=== PATIENT | female | born 1985 | race Caucasian/White ===

== ENCOUNTER 2020-08-12 21:03 | Inpatient (IN) | payer MEDICARE, MEDICAID ==
[~2020-08-12] VITALS: Ht 165.1 cm; Wt 49.9 kg
[2020-08-12 21:15] VITALS: BP 192/109
--- NOTE | 2020-08-12 21:42 | NUR ---
ED Nurse Note: Pt ambulated to ED from home, pt is a dialysis pt and was called by them due to elevated K+ 7.4. Pt reports mild intermittent shaRP NON-RADIATING CP. PT is A&Ox4, VSS. Pt is placed on a desk monitor, EKG at bedside
--- NOTE | 2020-08-12 21:59 | Emergency Room Report ---
History of Present Illness General Chief Complaint: Abnormal Labs Source: Patient Present Illness HPI Patient walked into the emergency department. She says that her dialysis center called her to report that her potassium was 7. She missed her dialysis on Sunday. She lives by [address] which is near [place] and has been in this area recently. She says she has been having some palpitations and feeling that her hearts been racing on occasion. She has been unable to keep any food or fluids down because she is been vomiting. She denies any coffee grounds or blood. She denies melena and has been moving her bowels without difficulty. She rarely makes urine and denies dysuria. She denies fevers or chills. She denies dyspnea on exertion. Dialysis fistula is in her left upper arm. Patient also complains of some epigastric pain that is 8/10. It is fairly constant. She is also been having intermittent chest pain left lateral chest that is 4 out of 10 at this time. She does not know what brings that pain on. Patient denies exposure to COVID positive contacts. No fevers, chills, sore throat, palpitations, diarrhea, dysuria, joint pain, rashes, depression, anxiety, visual changes, dizziness, headache. 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 COVID-19 Screening: Negative COVID-19 COVID-19 Testing Source: [facility] Patient History Past Medical History: see triage record Past Surgical History: other - Dialysis fistula Social History: Reports: smoking Social History Narrative From [place] Last Menstrual Period: 06/2020 Now: No Reviewed Nursing Documentation: PMH: Agreed; PSxH: Agreed Nursing Documentation-PMH Hx Hypertension: Yes Hx Dialysis: Yes - MWF Review of Systems All Other Systems: negative except mentioned in HPI Physical Exam Vital Signs Date Time Temp Pulse Resp B/P (MAP) Pulse Ox O2 Delivery O2 Flow Rate FiO2 08/12/20 21:15 98.8 85 20 192/109 (136) 98 Room Air Sp02 EP Interpretation: reviewed, normal General Appearance: well appearing, no apparent distress, GCS 15, non-toxic Head: normocephalic Eyes: bilateral eye normal inspection, bilateral eye PERRL, bilateral eye EOMI ENT: moist mucus membranes Neck: supple Respiratory: lungs clear, normal breath sounds Cardiovascular #1: regular rate, rhythm, no edema Cardiovascular #2: 2+ radial (R), 2+ radial (L) - fistula upper arm with thrill Gastrointestinal: normal inspection, normal bowel sounds, no mass, non- distended, no guarding, no rebound, tenderness - reported diffusely Genitourinary: no CVA tenderness Musculoskeletal: back normal, normal range of motion, no calf tenderness, gait/station normal Neurologic: alert, oriented x3, grossly normal Psychiatric: mood/affect normal Skin: no rash, warm/dry Medical Decision Making Diagnostic Impression: Primary Impression: Chest pain Qualified Codes: R07.9 - Chest pain, unspecified Additional Impressions: Abdominal pain Qualified Codes: R10.84 - Generalized abdominal pain ESRD on hemodialysis Nausea & vomiting Qualified Codes: R11.2 - Nausea with vomiting, unspecified ER Course Patient presents with alleged high potassium after missing dialysis on Sunday with complaints of epigastric and chest pain. Differential includes acute myocardial infarction, abnormal labs with high potassium, gastritis, arrhythmia, angina amongst others. Her blood pressure is high also. Evaluation with EKG and labs. 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 Blood pressure will be addressed. EKG with normal sinus rhythm rate of 80 with slight peaked T waves and left atrial enlargement however EKG machine reads this is normal. CXR sl cardiomegally, no CHF. WBC elevated. ESRD with minimally elevated potassium. Initial troponin negative. BNP elevated. Labetalol and clonidine patch ordered. Patient still complaining of pain. Morphine administered. Nausea somewhat improved. Blood pressure improved. Pain improved. Discussed results with patient. Admitted telemetry for further observation and evaluation. Laboratory Tests Test 08/12/20 21:55 08/13/20 05:20 08/13/20 06:26 White Blood Count 13.2 K/UL (4.8-10.8) H 8.8 K/UL (4.8-10.8) Red Blood Count 3.87 M/UL (4.20-5.40) L 3.38 M/UL (4.20-5.40) L Hemoglobin 13.1 G/DL (12.0-16.0) 11.6 G/DL (12.0-16.0) L Hematocrit 40.4 % (37.0-47.0) 36.4 % (37.0-47.0) L Mean Corpuscular Volume 104 FL (80-99) H 108 FL (80-99) H Mean Corpuscular Hemoglobin 33.9 PG (27.0-31.0) H 34.2 PG (27.0-31.0) H Mean Corpuscular Hemoglobin Concent 32.5 G/DL (32.0-36.0) 31.7 G/DL (32.0-36.0) L Red Cell Distribution Width 12.6 % (11.6-14.8) 12.6 % (11.6-14.8) Platelet Count 266 K/UL (150-450) 230 K/UL (150-450) Mean Platelet Volume 7.1 FL (6.5-10.1) 6.0 FL (6.5-10.1) L Neutrophils (%) (Auto) 77.4 % (45.0-75.0) H 67.8 % (45.0-75.0) Lymphocytes (%) (Auto) 14.2 % (20.0-45.0) L 21.2 % (20.0-45.0) Monocytes (%) (Auto) 5.2 % (1.0-10.0) 7.9 % (1.0-10.0) Eosinophils (%) (Auto) 2.0 % (0.0-3.0) 2.2 % (0.0-3.0) Basophils (%) (Auto) 1.2 % (0.0-2.0) 0.9 % (0.0-2.0) Prothrombin Time 11.7 SEC (9.30-11.50) H Prothrombin Time INR 1.1 (0.9-1.1) Activated Partial Thromboplast Time 29 SEC (23-33) Sodium Level 135 MMOL/L (136-145) L 136 MMOL/L (136-145) Potassium Level 5.3 MMOL/L (3.5-5.1) H 5.8 MMOL/L (3.5-5.1) H Chloride Level 100 MMOL/L (98-107) 100 MMOL/L (98-107) Carbon Dioxide Level 20 MMOL/L (21-32) L 21 MMOL/L (21-32) Anion Gap 15 mmol/L (5-15) 15 mmol/L (5-15) Blood Urea Nitrogen 74 mg/dL (7-18) H 76 mg/dL (7-18) H Creatinine 15.2 MG/DL (0.55-1.30) H 16.0 MG/DL (0.55-1.30) H Estimated Glomerular Filtration Rate 2.7 mL/min (>60) 2.5 mL/min (>60) Glucose Level 109 MG/DL (74-106) H 81 MG/DL (74-106) Calcium Level 8.3 MG/DL (8.5-10.1) L 7.7 MG/DL (8.5-10.1) L Magnesium Level 2.7 MG/DL (1.8-2.4) H Total Bilirubin 0.4 MG/DL (0.2-1.0) 0.4 MG/DL (0.2-1.0) Aspartate Amino Transferase (AST) 12 U/L (15-37) L 141 U/L (15-37) H Alanine Aminotransferase (ALT) 8 U/L (12-78) L 88 U/L (12-78) H Alkaline Phosphatase 118 U/L (46-116) H 127 U/L (46-116) H Total Creatine Kinase 62 U/L (26-308) Troponin I 0.023 ng/mL (0.000-0.056) Pro-B-Type Natriuretic Peptide > 47912 pg/mL (0-125) H Total Protein 7.6 G/DL (6.4-8.2) 6.7 G/DL (6.4-8.2) Albumin 3.8 G/DL (3.4-5.0) 3.4 G/DL (3.4-5.0) Globulin 3.8 g/dL 3.3 g/dL Albumin/Globulin Ratio 1.0 (1.0-2.7) 1.0 (1.0-2.7) Hemoglobin A1c 6.0 % (4.3-6.0) Phosphorus Level 7.7 MG/DL (2.5-4.9) H Triglycerides Level 114 MG/DL (30-150) Cholesterol Level 165 MG/DL (< 200) LDL Cholesterol 100 mg/dL (<100) HDL Cholesterol 39 MG/DL (40-60) L Cholesterol/HDL Ratio 4.2 (3.3-4.4) Thyroid Stimulating Hormone (TSH) 5.928 uiU/mL (0.358-3.740) POC Whole Blood Glucose 78 MG/DL (74-106) EKG Diagnostic Results Troponin ordered: Yes Rate: normal Rhythm: NSR ST Segments: no acute changes - slight peaked T waves ASA given to the pt in ED: Yes Rhythm Strip Diag. Results EP Interpretation: yes Rhythm: NSR, no PVC's, no ectopy Chest X-Ray Diagnostic Results Chest X-Ray Diagnostic Results : Chest X-Ray Ordered: Yes # of Views/Limited/Complete: 1 View Indication: Chest Pain EP Interpretation: Yes Interpretation: no consolidation, no effusion, no pneumothorax, other - slight cardiomegally Impression: Other Electronically Signed by: Electronically signed by Giorgio Fleming MD Last Vital Signs Date Time Temp Pulse Resp B/P (MAP) Pulse Ox O2 Delivery O2 Flow Rate FiO2 08/12/20 21:15 98.8 85 20 192/109 (136) 98 Room Air Status: improved Disposition: ADMITTED INPATIENT Condition: Serious Giorgio Fleming MD Aug 12, 2020 21:59
[2020-08-12] MEDS ORDERED: Morphine Sulfate 4mg/ml Inj (IV USE ONLY) IVP ONE ×2 (22:00→23:45)
[2020-08-12] MEDS ORDERED: Labetalol 5mg/ml 20ml vial IV ONE (22:00)
[2020-08-12 22:27] LABS: BASOPHILS % (AUTO) 1.2 % (0.0-2.0); HEMATOCRIT 40.4 % (37.0-47.0); HEMOGLOBIN 13.1 G/DL (12.0-16.0); LYMPHOCYTES % (AUTO) 14.2 % (20.0-45.0); MEAN CORPUSCULAR VOLUME 104 FL (80-99); MONOCYTES % (AUTO) 5.2 % (1.0-10.0); NEUTROPHILS % (AUTO) 77.4 % (45.0-75.0); PLATELET COUNT 266 K/UL (150-450); RED BLOOD COUNT 3.87 M/UL (4.20-5.40); RED CELL DISTRIBUTION WIDTH 12.6 % (11.6-14.8); WHITE BLOOD COUNT 13.2 K/UL (4.8-10.8)
[2020-08-12 22:30] LABS: ANION GAP 15 mmol/L (5-15); BLOOD UREA NITROGEN 74 mg/dL (7-18); CALCIUM 8.3 MG/DL (8.5-10.1); CARBON DIOXIDE 20 MMOL/L (21-32); CHLORIDE 100 MMOL/L (98-107); CREATININE 15.2 MG/DL (0.55-1.30); POTASSIUM 5.3 MMOL/L (3.5-5.1); SODIUM 135 MMOL/L (136-145)
[2020-08-12 22:34] LABS: INR 1.1 (0.9-1.1)
[2020-08-12 22:42] LABS: ALANINE AMINOTRANSFERASE 8 U/L (12-78); ALBUMIN 3.8 G/DL (3.4-5.0); ALKALINE PHOSPHATASE 118 U/L (46-116); ASPARTATE AMINO TRANSFERASE 12 U/L (15-37); BILIRUBIN,TOTAL 0.4 MG/DL (0.2-1.0); CREATINE KINASE 62 U/L (26-308)
[2020-08-12 23:15] VITALS: BP 181/90
--- NOTE | 2020-08-12 23:40 | NUR ---
ED Nurse Note: Pt resting in bed with eyes open, reports abdominal pain increasing, ERMD notified, VSS, will continue to monitor
[2020-08-12] MEDS ORDERED: clonidine patch TOPIC (23:42)
[2020-08-12] MEDS ORDERED: Mylanta II UD 30ml ORAL ONE (23:45)
[2020-08-12] MEDS ORDERED: ADALAT20 MG ORAL (23:52)
[2020-08-12] MEDS ORDERED: CALCIUM ACETATE1 GM MC (23:52)
[2020-08-13] MEDS ORDERED: Aspirin Baby 81mg ORAL ONE
[2020-08-13] MEDS ORDERED: Albuterol/Ipratropium 3ml neb HHN PRN
[2020-08-13] MEDS ORDERED: Zolpidem 5mg tab ORAL PRN
[2020-08-13] MEDS ORDERED: Miralax 17gm pkt ORAL PRN
--- NOTE | 2020-08-13 00:05 | NUR ---
ED Nurse Note: Ptc refused VRE swab
--- NOTE | 2020-08-13 00:25 | NUR ---
TRANSFER TO FLOOR: Patient transferred to as ordered, per Dr Alfaro. Report given to CONSTANTIN Ortiz . Belongings and medications given to . Family and or S/O informed of transfer.
--- NOTE | 2020-08-13 00:30 | NUR ---
NURSE NOTES: Received report from [facility].The patient is alert and oriented x4 and does not appear to be in any acute distress at this time.She is on room air with Resp even and unlabored and the bilateral lung sounds clear on auscultation.She is able to ambulate to the bathroom with a steady gait.The body is warm and soft with capillary refil<3 secs, body is intact. She was fitted with a ultrasound spec 5 lead.The patient is on hemodialysis MWF and missed dialysis on Sunday. Will followup with DR. alcantara for admission order as indicated.The bed in dagmar and locked level. call light within easy reach and side rails up x2.Will continue to monitor as indicated.
[2020-08-13 00:40] VITALS: BP 144/86
--- NOTE | 2020-08-13 00:50 | NUR ---
NURSE NOTES: Received admission order from Dr. Edmondson.All orders executed as indicated.The patient is alert and stable and does not appear to be in any distress at this time.Will continue to monitor
[2020-08-13 04:00] VITALS: BP 156/85
[2020-08-13] MEDS: NovoLOG Insulin Flexpen SUBQ SCH ×2 (06:30→11:30)
--- NOTE | 2020-08-13 06:50 | NUR ---
NURSE NOTES: A message was left to Dr rosa informing him about the patient ESRD and that the patient is on Hemodialysis MWF,she missed her dialysis on Sunday and will properly need a dialysis today as indicated. Will endorsed to the next shift for followup as indicated.
--- NOTE | 2020-08-13 07:12 | NUR ---
NURSE HAND-OFF REPORT: Important Events on Shift: Patient Status: Diet: Pending Orders: Pending Results/Labs: Pending MD notification: Latest Vital Signs: Temperature 97.9 , Pulse 78 , B/P 156 /85 , Respiratory Rate 18 , O2 SAT 97 , Room Air, O2 Flow Rate . Vital Sign Comment: EKG Rhythm: Sinus Rhythm Rhythm change?: N MD Notified?: - MD Response: Latest Villar Fall Score: 35 Fall Risk: Medium Risk Safety Measures: Call light Within Reach, Bed Alarm Zone 1, Side Rails Side Rails x1, Bed position Low and Locked. Fall Precautions: Yellow Socks Yellow Gown Door Sign Patient Fall Education Report given to .
[2020-08-13 07:16] LABS: BASOPHILS % (AUTO) 0.9 % (0.0-2.0); EOSINOPHILS % (AUTO) 2.2 % (0.0-3.0); HEMATOCRIT 36.4 % (37.0-47.0); HEMOGLOBIN 11.6 G/DL (12.0-16.0); LYMPHOCYTES % (AUTO) 21.2 % (20.0-45.0); MEAN CORPUSCULAR VOLUME 108 FL (80-99); MONOCYTES % (AUTO) 7.9 % (1.0-10.0); NEUTROPHILS % (AUTO) 67.8 % (45.0-75.0); PLATELET COUNT 230 K/UL (150-450); RED BLOOD COUNT 3.38 M/UL (4.20-5.40); RED CELL DISTRIBUTION WIDTH 12.6 % (11.6-14.8); WHITE BLOOD COUNT 8.8 K/UL (4.8-10.8)
--- NOTE | 2020-08-13 07:45 | NUR ---
NURSE NOTES: Left a message for Dr. Alfaro regarding heart rate 150's, BP 188/105. Awaiting response.
[2020-08-13 07:50] VITALS: BP 192/97
[2020-08-13 07:58] LABS: ALANINE AMINOTRANSFERASE 88 U/L (12-78); ALBUMIN 3.4 G/DL (3.4-5.0); ALKALINE PHOSPHATASE 127 U/L (46-116); ANION GAP 15 mmol/L (5-15); ASPARTATE AMINO TRANSFERASE 141 U/L (15-37); BILIRUBIN,TOTAL 0.4 MG/DL (0.2-1.0); BLOOD UREA NITROGEN 76 mg/dL (7-18); CALCIUM 7.7 MG/DL (8.5-10.1); CARBON DIOXIDE 21 MMOL/L (21-32); CHLORIDE 100 MMOL/L (98-107); CHOLESTEROL 165 MG/DL (< 200); HDL CHOLESTEROL 39 MG/DL (40-60); POTASSIUM 5.8 MMOL/L (3.5-5.1); SODIUM 136 MMOL/L (136-145); TRIGLYCERIDES 114 MG/DL (30-150)
[2020-08-13 08:00] VITALS: BP 187/90
--- NOTE | 2020-08-13 08:14 | NUR ---
NURSE NOTES: Per bessie Chacon to give the ordered lopressor 25mg PO BID. Dr. Alfaro aware of the clonidine given earlier.
[2020-08-13] MEDS ORDERED: Metoprolol Tartrate 5mg/5ml Inj IVP PRN (08:30)
[2020-08-13] MEDS ORDERED: Heparin 5000 units/ml inj SUBQ SCH (09:00)
[2020-08-13 12:00] VITALS: BP 199/104
--- NOTE | 2020-08-13 12:16 | Consultation ---
History of Present Illness General Date patient seen: Aug 13, 2020 Chief Complaint: Abnormal Labs Present Illness HPI 34 year old female with hx of ESRD on HD, HTN presented to ER because her dialysis center called her to report that her potassium was 7. She missed her dialysis on Sunday. She says she has been having some palpitations and feeling that her hearts been racing on occasion. She has been unable to keep any food or fluids down because she is been vomiting. Patient also complains of some epigastric pain that is 8/10. It is fairly constant. She is also been having intermittent chest pain left lateral chest that is 4 out of 10 at this time. She does not know what brings that pain on. Allergies: Coded Allergies: No Known Allergies (Unverified , 08/12/20) Medication History Scheduled Nifedipine (Nifedipine*), 90 MG ORAL BID, (Reported) [clonidine patch], 3 MG TOPIC DAILY, (Reported) Miscellaneous Medications Calcium Acetate (Calcium Acetate), 1 GM MC, (Reported) Patient History Healthcare decision maker Resuscitation status Advanced Directive on File Past Medical/Surgical History Past Medical/Surgical History: (1) ESRD on hemodialysis (2) History of hypertension Review of Systems All Other Systems: negative except mentioned in HPI Physical Exam General Appearance: cachetic, thin Lines, tubes and drains: peripheral HEENT: normocephalic, atraumatic Neck: non-tender, normal alignment Respiratory/Chest: chest wall non-tender, lungs clear Breasts: no masses Cardiovascular/Chest: normal peripheral pulses Abdomen: normal bowel sounds, non tender Extremities: normal range of motion, non-tender, normal inspection Skin Exam: normal pigmentation 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 normal Last 24 Hour Vital Signs Date Time Temp Pulse Resp B/P (MAP) Pulse Ox O2 Delivery O2 Flow Rate FiO2 08/13/20 08:04 192/97 08/13/20 08:00 80 08/13/20 08:00 97.2 80 16 187/90 (122) 100 08/13/20 07:50 192/97 (128) 08/13/20 04:00 97.9 78 18 156/85 (108) 97 08/13/20 00:40 97.6 79 19 144/86 (105) 97 08/13/20 00:37 65 08/13/20 00:20 98.0 78 18 167/88 99 Room Air 08/13/20 00:14 98.7 08/12/20 23:15 98.0 81 20 181/90 99 Room Air 08/12/20 22:45 98.7 08/12/20 22:13 181/101 08/12/20 22:13 85 181/105 08/12/20 21:15 98.8 85 20 192/109 (136) 98 Room Air 08/12/20 21:15 98.8 86 20 192/109 98 Room Air Laboratory Tests Test 08/12/20 21:55 08/13/20 00:15 08/13/20 05:20 08/13/20 06:26 White Blood Count 13.2 K/UL (4.8-10.8) H 8.8 K/UL (4.8-10.8) Red Blood Count 3.87 M/UL (4.20-5.40) L 3.38 M/UL (4.20-5.40) L Hemoglobin 13.1 G/DL (12.0-16.0) 11.6 G/DL (12.0-16.0) L Hematocrit 40.4 % (37.0-47.0) 36.4 % (37.0-47.0) L Mean Corpuscular Volume 104 FL (80-99) H 108 FL (80-99) H Mean Corpuscular Hemoglobin 33.9 PG (27.0-31.0) H 34.2 PG (27.0-31.0) H Mean Corpuscular Hemoglobin Concent 32.5 G/DL (32.0-36.0) 31.7 G/DL (32.0-36.0) L Red Cell Distribution Width 12.6 % (11.6-14.8) 12.6 % (11.6-14.8) Platelet Count 266 K/UL (150-450) 230 K/UL (150-450) Mean Platelet Volume 7.1 FL (6.5-10.1) 6.0 FL (6.5-10.1) L Neutrophils (%) (Auto) 77.4 % (45.0-75.0) H 67.8 % (45.0-75.0) Lymphocytes (%) (Auto) 14.2 % (20.0-45.0) L 21.2 % (20.0-45.0) Monocytes (%) (Auto) 5.2 % (1.0-10.0) 7.9 % (1.0-10.0) Eosinophils (%) (Auto) 2.0 % (0.0-3.0) 2.2 % (0.0-3.0) Basophils (%) (Auto) 1.2 % (0.0-2.0) 0.9 % (0.0-2.0) Prothrombin Time 11.7 SEC (9.30-11.50) H Prothromb Time International Ratio 1.1 (0.9-1.1) Activated Partial Thromboplast Time 29 SEC (23-33) Sodium Level 135 MMOL/L (136-145) L 136 MMOL/L (136-145) Potassium Level 5.3 MMOL/L (3.5-5.1) H 5.8 MMOL/L (3.5-5.1) H Chloride Level 100 MMOL/L (98-107) 100 MMOL/L (98-107) Carbon Dioxide Level 20 MMOL/L (21-32) L 21 MMOL/L (21-32) Anion Gap 15 mmol/L (5-15) 15 mmol/L (5-15) Blood Urea Nitrogen 74 mg/dL (7-18) H 76 mg/dL (7-18) H Creatinine 15.2 MG/DL (0.55-1.30) H 16.0 MG/DL (0.55-1.30) H Estimat Glomerular Filtration Rate 2.7 mL/min (>60) 2.5 mL/min (>60) Glucose Level 109 MG/DL (74-106) H 81 MG/DL (74-106) Calcium Level 8.3 MG/DL (8.5-10.1) L 7.7 MG/DL (8.5-10.1) L Magnesium Level 2.7 MG/DL (1.8-2.4) H Total Bilirubin 0.4 MG/DL (0.2-1.0) 0.4 MG/DL (0.2-1.0) Aspartate Amino Transf (AST/SGOT) 12 U/L (15-37) L 141 U/L (15-37) H Alanine Aminotransferase (ALT/SGPT) 8 U/L (12-78) L 88 U/L (12-78) H Alkaline Phosphatase 118 U/L (46-116) H 127 U/L (46-116) H Total Creatine Kinase 62 U/L (26-308) Troponin I 0.023 ng/mL (0.000-0.056) Pro-B-Type Natriuretic Peptide > 06907 pg/mL (0-125) H Total Protein 7.6 G/DL (6.4-8.2) 6.7 G/DL (6.4-8.2) Albumin 3.8 G/DL (3.4-5.0) 3.4 G/DL (3.4-5.0) Globulin 3.8 g/dL 3.3 g/dL Albumin/Globulin Ratio 1.0 (1.0-2.7) 1.0 (1.0-2.7) Hepatitis B Surface Antigen Pending Hemoglobin A1c 6.0 % (4.3-6.0) Phosphorus Level 7.7 MG/DL (2.5-4.9) H Triglycerides Level 114 MG/DL (30-150) Cholesterol Level 165 MG/DL (< 200) LDL Cholesterol 100 mg/dL (<100) HDL Cholesterol 39 MG/DL (40-60) L Cholesterol/HDL Ratio 4.2 (3.3-4.4) Thyroid Stimulating Hormone (TSH) 5.928 uiU/mL (0.358-3.740) POC Whole Blood Glucose 78 MG/DL (74-106) Height (Feet): 5 Height (Inches): 5.00 Weight (Pounds): 110 Medications Current Medications Medications (Trade) Dose Ordered Sig/Dexter Route PRN Reason Start Time Stop Time Status Last Admin Dose Admin Acetaminophen (Tylenol) 650 mg Q4H PRN ORAL fever 08/13/20 00:00 09/12/20 00:00 Albuterol/ Ipratropium (Albuterol/ Ipratropium) 3 ml Q6H PRN HHN dyspnea 08/13/20 00:00 08/18/20 00:00 Clonidine HCl (Catapres Tab) 0.1 mg Q4H PRN ORAL For High Blood Pressure 08/13/20 00:00 11/11/20 00:00 08/13/20 08:04 Dextrose (Dextrose 50%) 25 ml Q30M PRN IV Hypoglycemia 08/13/20 00:00 11/11/20 00:00 Dextrose (Dextrose 50%) 50 ml Q30M PRN IV Hypoglycemia 08/13/20 00:00 11/11/20 00:00 Heparin Sodium (Porcine) (Heparin 5000 units/ml) 5,000 units EVERY 12 HOURS SUBQ 08/13/20 09:00 09/27/20 08:59 Insulin Aspart (NovoLOG) BEFORE MEALS AND HS SUBQ 08/13/20 06:30 11/11/20 06:29 Metoprolol Tartrate (Lopressor) 5 mg Q6H PRN IVP Tachycardia 08/13/20 08:30 11/11/20 08:29 Metoprolol Tartrate (Lopressor) 25 mg Q12HR ORAL 08/13/20 09:00 11/11/20 08:59 Ondansetron HCl (Zofran) 4 mg Q6H PRN IVP Nausea & Vomiting 08/13/20 00:00 09/12/20 00:00 Polyethylene Glycol (Miralax) 17 gm HSPRN PRN ORAL Constipation 08/13/20 00:00 09/12/20 00:00 Zolpidem Tartrate (Ambien) 5 mg HSPRN PRN ORAL Insomnia 08/13/20 00:00 08/20/20 00:00 Assessment/Plan Problem List: (1) Hyperkalemia ICD Codes: E87.5 - Hyperkalemia SNOMED: 23943387 (2) Uncontrolled hypertension ICD Codes: I10 - Essential (primary) hypertension SNOMED: 10462241, 15319214 (3) Nausea & vomiting ICD Codes: R11.2 - Nausea with vomiting, unspecified SNOMED: 60197205 Qualifiers: Qualified Codes: R11.2 - Nausea with vomiting, unspecified (4) ESRD on hemodialysis ICD Codes: N18.6 - End stage renal disease; Z99.2 - Dependence on renal dialysis SNOMED: 38933761, 749283411 (5) History of hypertension ICD Codes: Z86.79 - Personal history of other diseases of the circulatory system SNOMED: 750890470 (6) Poor compliance ICD Codes: Z91.19 - Patient's noncompliance with other medical treatment and regimen SNOMED: 3100546 Assessment/Plan: symptomatic treatment HD lola, pt is getting dialysis right now resume home meds, including antihypertensive meds monitor BP GI evaluation dvt prophylaxis Vanessa Nix MD Aug 13, 2020 12:16
--- NOTE | 2020-08-13 13:03 | History & Physical ---
History and Physical History & Physicial Pilo Alfaro MD Aug 13, 2020 13:03
--- NOTE | 2020-08-13 13:11 | Consultation ---
Consult Note Consult Note I am asked to evaluate the patient at the request of Dr. Alfaro for dialysis management Patient seen this morning in the room while on dialysis. Emergency room note: Patient walked into the emergency department. She says that her dialysis center called her to report that her potassium was 7. She missed her dialysis on Sunday. She lives by [address] which is near [place] and has been in this area recently. She says she has been having some palpitations and feeling that her hearts been racing on occasion. She has been unable to keep any food or fluids down because she is been vomiting. She denies any coffee grounds or blood. She denies melena and has been moving her bowels without difficulty. She rarely makes urine and denies dysuria. She denies fevers or chills. She denies dyspnea on exertion. Dialysis fistula is in her left upper arm. Patient also complains of some epigastric pain that is 8/10. It is fairly constant. She is also been having intermittent chest pain left lateral chest that is 4 out of 10 at this time. She does not know what brings that pain on. Patient denies exposure to COVID positive contacts. No fevers, chills, sore throat, palpitations, diarrhea, dysuria, joint pain, rashes, depression, anxiety, visual changes, dizziness, headache. 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 COVID-19 Screening: Negative COVID-19 COVID-19 Testing Source: [facility] Past Medical History: see triage record Past Surgical History: other - Dialysis fistula Social History: Reports: smoking Social History Narrative From [place] Last Menstrual Period: 06/2020 Now: No Reviewed Nursing Documentation: PMH: Agreed; PSxH: Agreed Hx Hypertension: Yes Hx Dialysis: Yes - MWF Vital Signs Date Time Temp Pulse Resp B/P (MAP) Pulse Ox O2 Delivery O2 Flow Rate FiO2 08/12/20 21:15 98.8 85 20 192/109 (136) 98 Room Air Sp02 EP Interpretation: reviewed, normal Assessment/Plan Patient presents to emergency room, missed dialysis, has high potassium Chest pain Abdominal pain, nausea and vomiting Hypertensive kidney disease Hemodialysis already in process Continue per consultants Keep the blood pressure, blood sugar, in control Monitor renal parameters Per orders Joe Garg MD Aug 13, 2020 13:11
[2020-08-13] MEDS ORDERED: HydrALAZINE 50mg tab ORAL SCH (14:00)
[2020-08-13 14:49] VITALS: BP 199/104
--- NOTE | 2020-08-13 15:00 | NUR ---
NURSE NOTES: Patient has been requesting to leave because she just wants her dialysis completed and go home. She stated, "i do not want to be here, I want to go see my rail setter near my house." I attempted talking to her to get her stay by stating that there are risks involved leaving against medical advise, we need authorization from the doctor to fully ensure she is stable enough to leave. Despite education she requested to leave and signed the AMA form. shelter monitor removed and given to MT. ARELI Dutton on right antecubital removed, skin is intact, no s/s infection or induration. Skin is intact. Patient ID band removed and placed in appropriate receptacle. Escorted patient out of the hospital without any incident.
--- NOTE | 2020-08-13 16:20 | Cardiology Report ---
APPROVED REPORT EKG Measurement Heart [id number] <Conclusion> Normal sinus rhythm Possible Left atrial enlargement Left ventricular hypertrophy with repolarization abnormality Abnormal ECG
--- NOTE | 2020-08-13 16:42 | Diagnostic Imaging Report ---
Indication: Chest pain Technique: XRAY Chest 1v Comparison: None Findings: Heart appears enlarged. Mediastinal contours are sharp. There is no focal airspace consolidation. No pleural effusion or pneumothorax. No acute osseous abnormality. Chronic fracture of the left clavicle. Impression: No radiographic evidence of acute cardiopulmonary disease.
[2020-08-13] MEDS ORDERED: Docusate 100mg cap ORAL SCH (18:00)
--- NOTE | 2020-08-14 09:15 | History and Physical Report ---
DATE OF ADMISSION: 08/12/2020 CHIEF COMPLAINT: Abnormal laboratory. HISTORY OF PRESENT ILLNESS: This is a 34-year-old female with past medical history significant for end-stage renal disease on hemodialysis, Sunday, Sunday, and Sunday, and hypertension, who presented to emergency department due to abnormal blood work with potassium of 7. The patient missed her regular dialysis past Sunday. She stated that she has been having some palpitation, feeling that her heart is racing occasionally. She is unable to keep any food or fluids down because of vomiting. She complains of some epigastric pain, 8/10 in intensity, constant. She also is having intermittent chest discomfort at left lateral chest, 4/10 in intensity. Shortly after initial evaluation in the emergency department, the patient was noted to have a potassium of 5.3 and proBNP of greater than 35,000. Subsequently, the patient was admitted to the hospital for hyperkalemia as well as hypertensive urgency. PAST MEDICAL HISTORY/PAST SURGICAL HISTORY: As above history of end-stage renal disease on hemodialysis, Sunday, Sunday, Sunday, and hypertension. MEDICATIONS AT HOME: Please refer to medication reconciliation. ALLERGIES: No known drug allergies. SOCIAL HISTORY: The patient denies any alcohol or substance abuse at this time. FAMILY HISTORY: Noncontributory. REVIEW OF SYSTEMS: Mostly as above. Denies any dysuria, frequency, or hematuria. Complained about nausea, vomiting, palpitation, and chest discomfort. Denies any loss of consciousness. Denies any fall or head trauma. PHYSICAL EXAMINATION: VITAL SIGNS: On admission, temperature 98.8, pulse of 86, respirations 20, and blood pressure 192/109. GENERAL: The patient is awake and responsive, thin-appearing, cachectic. HEAD AND NECK: Pupils are equal and reactive to light. Extraocular movements intact. Neck was supple. No JVD. LUNGS: Good air entry with no wheezing or rales. HEART: S1, S2. Regular rhythm. No murmur or gallops. ABDOMEN: Soft, nondistended, nontender. Positive bowel sounds. EXTREMITIES: No cyanosis, clubbing, or edema. The patient has AV fistula on the left upper extremity. NEUROLOGIC: Cranial nerves 2 through 12 was intact. The patient is moving all extremities spontaneously. Motor is intact. LABORATORY DATA: On admission from the emergency department, sodium 135, potassium 5.3, chloride 100, bicarbonate 20, BUN 74, creatinine is 15.2. GFR is 2.7. Glucose is 109. Calcium is 8.3. Magnesium 2.7. Total bilirubin of 0.4, AST of 12, ALT of 8, alkaline phosphatase was 118. ProBNP greater than 35,000. PT of 11, INR 1.1, PTT of 29. WBC of 13.2, hemoglobin of 13, hematocrit 40, and platelets 266,000. The patient had a chest x-ray, no radiographic evidence of acute cardiopulmonary disease. EKG shows normal sinus rhythm, ventricular rate of 80, possible left atrial enlargement, left ventricular hypertrophy with repolarization abnormality. Abnormal EKG. ASSESSMENT: 1. Hypertensive urgency. 2. Hyperkalemia. 3. End-stage renal disease, on hemodialysis. 4. Chest pain, possible acute coronary syndrome. 5. Abdominal pain associated with nausea and vomiting. 6. Hypertensive kidney disease. PLAN: 1. Admit the patient to monitored unit. 2. We will follow up with Dr. Joe Garg for emergent dialysis order. 3. We will follow up with Dr. Nix, Pulmonary Critical Care. 4. Monitor laboratory and blood pressure closely. 5. Code status is Full Code. 6. DVT prophylaxis, heparin subcutaneous. Pilo Alfaro M.D. DR: ANN JOB#: [id number] CC:
--- NOTE | 2020-08-15 12:28 | Discharge Summary ---
Discharge Summary Discharge Summary _ DATE OF ADMISSION: 08/12/2020 DATE OF DISCHARGE: 08/13/2020 ADMITTING MD: Dr. Pilo Alfaro CONSULTANTS: Dr. Joe Nix BRIEF HOSPITAL COURSE: Patient is a 34-year-old female with past medical history significant for end- stage renal disease on hemodialysis every Sunday, Sunday and Sunday, and hypertension, who presented to the emergency department due to abnormal blood work potassium level of 7. The patient missed her regular dialysis. She complained of palpitation, feeling that her heart is racing occasionally. She is unable to keep any food or fluid down because of vomiting. She complained of epigastric pain, 8/10 in intensity, described to be constant. She also had intermittent chest discomfort at left lateral chest, 4/10 in intensity. Upon evaluation at ED, blood pressure was 192/109. EKG with normal sinus rhythm at a rate of 80, slightly peaked T waves and left atrial enlargement. Chest x- ray showed cardiomegaly, no CHF. WBC was elevated to 13. Potassium level 5.3. Initial troponin negative. She was given labetalol and clonidine patch. Patient was admitted for evaluation of hyperkalemia as well as hypertensive urgency. She was admitted to monitored unit. Home meds were resumed. Stat hemodialysis was ordered. Post hemodialysis, patient left and signed an AMA form. FINAL DIAGNOSES: Hypertensive urgency Hyperkalemia End-stage renal disease on hemodialysis Chest pain, possible acute coronary syndrome Abdominal pain associated with nausea and vomiting Hypertensive kidney disease DISPOSITION: Patient left AGAINST MEDICAL ADVICE. I have been assigned to complete a discharge summary on this account, I was not involved with the patient's management.--MARY Bowman Jacqueline Robles NP Aug 15, 2020 12:28
--- NOTE | 2020-08-15 20:44 | Cardiology Report ---
APPROVED REPORT EKG Measurement Heart [id number] <Conclusion> Normal sinus rhythm Voltage for LVH Anterior infarct, age undetermined T wave abnormality, consider lateral ischemia Abnormal ECG
--- NOTE | 2020-08-16 10:32 | Cardiology Report ---
APPROVED REPORT EXAM: Two-dimensional and M-mode echocardiogram with Doppler and color Doppler. INDICATION LV FUNCTION M-Mode DIMENSIONS IVSd1.0 (0.7-1.1cm)Left Atrium (MM)3.4 (1.6-4.0cm) LVDd4.8 (3.5-5.6cm)Aortic Root3.2 (2.0-3.7cm) PWd2.3 (0.7-1.1cm)Aortic Cusp Exc.2.0 (1.5-2.0cm) IVSs1.4 cm LVDs3.5 (2.5-4.0cm) <Conclusion> Normal left ventricular chamber size, systolic function and wall motion. Left ventricular ejection fraction estimated to be 60-65%. Mild left ventricular hypertrophy by 2-D. No evidence of pericardial effusion. Pleural effusion present. Mild left atrial enlargement. Right cardiac chamber sizes are within normal limits. Moderate mitral valve leaflets calcification with normal excursion. Moderate mitral annulus and aortic root calcification. Pulmonic valve not well visualized. Normal tricuspid valve structure. IVC at normal size with physiologic collapse. A color flow and spectral Doppler study was performed and revealed: Moderate to severe aortic insufficiency. Moderate mitral regurgitation. Peak mitral valve gradient of 13 mm Hg and a mean of 5 mmHg. Mitral inflow indicates normal left ventricular diastolic function. Mild tricuspid regurgitation. Tricuspid systolic velocities suggests peak right ventricular systolic pressure of 67mmHg, consistent with severe pulmonary hypertension. Trace pulmonic insufficiency .
== END 2020-08-13 15:24 | disposition left against medical advice (07) | DRG 640 ==
LOC: EMR 21:58 → 2E 22:01 → EDBEDREQ 23:44 → 2E 08-13 05:42
PROC: 5A1D70Z Performance of Urinary Filtration, Intermittent, Less than 6 Hours Per Day (ICD-10-PCS; principal; 2020-08-13)
DX: E87.5 Hyperkalemia (principal); N18.6 End stage renal disease; I12.0 Hypertensive chronic kidney disease with stage 5 chronic kidney disease or end stage renal disease; I24.9 Acute ischemic heart disease, unspecified; I16.0 Hypertensive urgency; Z99.2 Dependence on renal dialysis; Z91.15 Patient's noncompliance with renal dialysis; R10.9 Unspecified abdominal pain; R11.2 Nausea with vomiting, unspecified
CPT/HCPCS: 36415; 71045; 80053; 80061; 82550; 82962; 83036; 83735; 83880; 84100; 84443; 84484; 85025; 85610; 85730; 86706; 87081; 93005; 93306; 96374; 96375; 96376; 99285; J1815; J2405

== ENCOUNTER 2020-08-24 20:50 | Emergency (ER) | payer MEDICARE, MEDICAID ==
[~2020-08-24] VITALS: Ht 165.1 cm; Wt 49.9 kg
[~2020-08-24 20:50] MED LIST: ADALAT20 MG ORAL; CALCIUM ACETATE1 GM MC; clonidine patch TOPIC
[2020-08-24 21:00] VITALS: BP 145/72
--- NOTE | 2020-08-24 21:00 | NUR ---
ED Nurse Note: pt ambulated into ed from home for STD check up due to current sexual partner having ss of std/sti. pt states she has no symptoms at this time. pt aao x 4,a mbulates with steady gait. vss no ss of distress noted. will continue to monitor. awaiting further orders. awaiting ermd at bedside
--- NOTE | 2020-08-24 21:10 | NUR ---
ED Nurse Note: ermd at bedside
[2020-08-24] MEDS ORDERED: Lidocaine 1% MPF 10mg/ml 5ml INJ ONE (21:45)
[2020-08-24] MEDS ORDERED: Azithromycin 250mg tab ORAL ONE (21:45)
--- NOTE | 2020-08-24 21:45 | NUR ---
ED Nurse Note: all medications adminsitered, pt tolerated well no ss of distres noted. will continue to monitor.
[2020-08-24 22:00] VITALS: BP 149/73
--- NOTE | 2020-08-24 22:00 | NUR ---
ER DISCHARGE NOTE: Patient is cleared to be discharged home per ERMD, pt is aox4, 99% on room air, with stable vital signs. pt was given dc and prescription instructions, pt was able to verbalize understanding, pt id band removed without complications. pt is able to ambulate with steady gait. pt took all belongings.
--- NOTE | 2020-08-24 23:27 | Emergency Room Report ---
History of Present Illness General Chief Complaint: Female Urogenital Problems Source: Patient Present Illness HPI Disclaimer: Please note that this report is being documented using DRAGON technology. This can lead to erroneous entry secondary to incorrect interpretation by the dictating instrument. HPI: 34-year-old female presents after STD exposure. Unprotected intercourse with multiple sexual partners. One of her partners presents today after symptoms of STI. Patient herself is asymptomatic and denies vaginal bleeding, vaginal discharge, pain with intercourse, dysuria, hematuria, fever, chills, abdominal pain or cramping. Requesting treatment and testing. 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 EOMI. Resp: Normal work of breathing Abdomen: Soft, nontender, nondistended Skin: Intact. No abrasions, laceration or rash over the exposed skin MSK: Normal tone and bulk. Moving all extremities. No obvious deformity. Neuro: Awake and alert. Mentating appropriately Medical Decision Making Diagnostic Impression: Primary Impression: STD exposure ER Course 34-year-old female presents after STD exposure. Patient is asymptomatic but partner who also presents to ED is symptomatic. Will treat with ceftriaxone azithromycin. Refer to outpatient STI testing for HIV, HSV, hepatitis, etc. Patient stable for outpatient follow-up. She understands and agrees with this treatment plan. Last Vital Signs Date Time Temp Pulse Resp B/P (MAP) Pulse Ox O2 Delivery O2 Flow Rate FiO2 08/24/20 20:55 98.1 79 18 98 Disposition: HOME, SELF-CARE Condition: Stable Referrals: [facility] *Patients are seen by appointment only* [facility] – [place]/[facility] Patient Instructions: Safe Sex Additional Instructions: Please follow-up with one of the clinics listed here in your discharge paperwork for STD testing including HIV, hepatitis, herpes virus, syphilis, chlamydia, gonorrhea among others. Refrain from sexual contact until you obtain these results. Notify all sexual partners of any positive results. Return to the emergency department new or worsening symptoms. Please follow-up with your primary care doctor in the next 1 to 3 days to discuss this emergency department visit and for reevaluation. If you have any new or worsening symptoms please return to the emergency department for reevaluation. Please note that this report is being documented using [employer] technology. This can lead to erroneous entry secondary to incorrect interpretation by the dictating instrument. Kunal Sandoval MD Aug 24, 2020 23:27
== END 2020-08-24 22:00 | disposition home or self-care (01) ==
LOC: EMR 21:08
DX: Z20.2 Contact with and (suspected) exposure to infections with a predominantly sexual mode of transmission (principal); I10 Essential (primary) hypertension; Z88.8 Allergy status to other drugs, medicaments and biological substances
CPT/HCPCS: 96372; 99283; J0696

== ENCOUNTER 2020-08-30 13:44 | Emergency (ER) | payer MEDICARE, MEDICAID ==
[~2020-08-30] VITALS: Ht 165.1 cm; Wt 54.4 kg
--- NOTE | 2020-08-30 13:58 | NUR ---
ED Nurse Note: PT AMBULATED TO ED C/O EPIGASTRIC ABDOMEN PAIN WITH NAUSEA VOMTIING DIARRHEA . PT REPORTS BLOOD IN STOOL. PT MISSED DIALYSIS APPOINTMENT, AND STATED THAT SHE JUST WANTS DIALYSIS DONE BUT DOES NOT WANT TO BE ADMITTED OR HAVE BLOOD DRAWN. INFORMED ERMD.
[2020-08-30 13:59] VITALS: BP 186/112
[2020-08-30] MEDS ORDERED: Morphine Sulfate 2mg/ml Inj(IV/IM USE ONLY) IVP ONE (14:00)
--- NOTE | 2020-08-30 14:01 | NUR ---
AMA: SEE AMA FORM.
[2020-08-30 14:02] VITALS: BP 179/100
--- NOTE | 2020-08-30 16:39 | Emergency Room Report ---
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 When I explained to the patient that patient is visiting from out of town and could not arrange dialysis. Denies chest pain or shortness of breath. I explained to the patient that she would require blood work and admission in order to receive dialysis patient refused. Refused blood work. Refused admission. Wants to leave. refused exam. Understands the risks of leaving. Patient has competency to make her own decisions. Signed AMA form. Last Vital Signs Date Time Temp Pulse Resp B/P (MAP) Pulse Ox O2 Delivery O2 Flow Rate FiO2 08/30/20 14:02 98.4 92 19 179/100 98 Room Air Status: unchanged Disposition: AGAINST MEDICAL ADVICE Condition: Stable Referrals: NOT CHOSEN IPA/,REFERRING (PCP) Tiburcio Christy MD Aug 30, 2020 16:39
== END 2020-08-30 14:02 | disposition left against medical advice (07) ==
LOC: EMR 14:00
DX: I12.0 Hypertensive chronic kidney disease with stage 5 chronic kidney disease or end stage renal disease (principal); N18.6 End stage renal disease; Z99.2 Dependence on renal dialysis; Z88.8 Allergy status to other drugs, medicaments and biological substances
CPT/HCPCS: 96374; 96375; 99284

== ENCOUNTER 2020-08-31 21:09 | Inpatient (IN) | payer MEDICARE, MEDICAID ==
[~2020-08-31] VITALS: Ht 165.1 cm; Wt 49.9 kg
[2020-08-31 21:20] VITALS: BP 212/115
--- NOTE | 2020-08-31 21:20 | NUR ---
ED Nurse Note: Patient walked in from home d/t chest pain accompanied by abdominal pain. Patient aao x 4 and ambulatory. Patient hx of dialysis, last dialysis was 08/27/20, patient states she gets dialysis MWF. Dialysis shunt on left upper arm. Patient reports she feels the same symptoms when her potassium level is high. Patient placed on security monitor and changed into gown, no acute distress noted.
[2020-08-31 21:41] LABS: EOSINOPHILS % (AUTO) 3.2 % (0.0-3.0); HEMATOCRIT 26.4 % (37.0-47.0); HEMOGLOBIN 8.7 G/DL (12.0-16.0); LYMPHOCYTES % (AUTO) 15.9 % (20.0-45.0); MEAN CORPUSCULAR VOLUME 102 FL (80-99); MONOCYTES % (AUTO) 3.5 % (1.0-10.0); NEUTROPHILS % (AUTO) 76.4 % (45.0-75.0); PLATELET COUNT 299 K/UL (150-450); RED BLOOD COUNT 2.59 M/UL (4.20-5.40); RED CELL DISTRIBUTION WIDTH 13.5 % (11.6-14.8); WHITE BLOOD COUNT 11.5 K/UL (4.8-10.8)
[2020-08-31] MEDS ORDERED: Sodium Polystyrene Sulfonate 15gm Powder ORAL ONE (21:45)
[2020-08-31] MEDS ORDERED: Calcium Gluconate 1gm/10ml vial IVP ONE (21:45)
[2020-08-31] MEDS ORDERED: Insulin Human Regular 100units/ml 3ml IV ONE (21:45)
[2020-08-31 21:58] LABS: ALANINE AMINOTRANSFERASE 19 U/L (12-78); ALBUMIN 3.7 G/DL (3.4-5.0); ALBUMIN/GLOBULIN RATIO 1.1 (1.0-2.7); ALKALINE PHOSPHATASE 93 U/L (46-116); ASPARTATE AMINO TRANSFERASE 15 U/L (15-37); BILIRUBIN,TOTAL 0.4 MG/DL (0.2-1.0); BLOOD UREA NITROGEN 92 mg/dL (7-18); CARBON DIOXIDE 20 MMOL/L (21-32); CHLORIDE 98 MMOL/L (98-107); CREATININE 13.4 MG/DL (0.55-1.30); SODIUM 136 MMOL/L (136-145)
--- NOTE | 2020-08-31 22:38 | Emergency Room Report ---
History of Present Illness General Chief Complaint: Chest Pain Source: Patient Present Illness HPI 34-year-old female presents with chest pain. History of end-stage renal disease. On dialysis. Gets dialysis Sunday. Is visiting from out of town and was unable to arrange for her dialysis on Sunday. Pain is sharp, 7 out of 10, nonradiating. Denies fevers or chills. No other aggravating relieving factors. 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 COVID-19 Screening: Negative COVID-19 COVID-19 Testing Source: unk Patient History Past Medical History: renal disease, dialysis Past Surgical History: none Pertinent Family History: none Social History: Denies: smoking, alcohol use, drug use Last Menstrual Period: n/a Now: No Immunizations: UTD Reviewed Nursing Documentation: PMH: Agreed; PSxH: Agreed Nursing Documentation-PMH Past Medical History: No History, Except For Hx Hypertension: Yes Hx Dialysis: Yes - MWF Review of Systems All Other Systems: negative except mentioned in HPI Physical Exam Vital Signs Date Time Temp Pulse Resp B/P (MAP) Pulse Ox O2 Delivery O2 Flow Rate FiO2 08/31/20 21:14 98.4 100 18 212/115 (147) 95 Room Air Sp02 EP Interpretation: reviewed, normal General Appearance: no apparent distress, alert, GCS 15, non-toxic Head: normocephalic, atraumatic Eyes: bilateral eye normal inspection, bilateral eye PERRL ENT: hearing grossly normal, normal pharynx, no angioedema, normal voice Neck: full range of motion, supple/symm/no masses Respiratory: chest non-tender, lungs clear, normal breath sounds, speaking full sentences Cardiovascular #1: regular rate, rhythm, no edema Cardiovascular #2: 2+ carotid (R), 2+ carotid (L), 2+ radial (R), 2+ radial (L), 2+ dorsalis pedis (R), 2+ dorsalis pedis (L) Gastrointestinal: normal bowel sounds, non tender, soft, non-distended, no guarding, no rebound Rectal: deferred Genitourinary: normal inspection, no CVA tenderness Musculoskeletal: back normal, normal range of motion, gait/station normal, non- tender Neurologic: alert, motor strength/tone normal, oriented x3, sensory intact, responsive, speech normal Psychiatric: judgement/insight normal, memory normal, mood/affect normal, no suicidal/homicidal ideation Reflexes: 3+ bicep (R), 3+ bicep (L), 3+ tricep (R), 3+ tricep (L), 3+ knee (R), 3+ knee (L) Lymphatic: no adenopathy Procedures Critical Care Time Critical Care Time i. I feel this is a highly complex case requiring extensive working including EKG/Rhythm strip, Xray/CT/US, Blood/urine lab work, repeat exams while in ED, and administration of strong opiates/narcotics for pain control, admission to hospital or close patient follow up. Total time: 30 min bedside evaluation and treatment excludes procedures (EKG). Reason for critical care: hyperkalemia, chest pain Possible complications: hypotension, hypertension, KY, shock, arrhythmias, metabolic acidosis, end organ damage, respiratory failure. Interventions: labs, EKG, CXR, calcium, insulin/D50, kayexelate, morphine, aspirin Course: Patient presenting with chest pain. Missed dialysis. End-stage renal disease. Peaked T waves on EKG. Given Kayexalate, insulin/D50, calcium. Troponin minimally elevated. Potassium 6. Consultations: nursing staff, EMS, family Performed by: Dr Christy Tolerated well condition =serious j. because of unstable vital signs this patient had a condition that could potentially threaten life or limb. I feel this is a critical patient who required my full attention while patient was considered critical. Total Critical Care Time excluding procedures was greater than 35 minutes Medical Decision Making Diagnostic Impression: Primary Impression: Hyperkalemia Additional Impression: ESRD on hemodialysis ER Course Hospital Course 34-year-old female complaining of chest pain. Missed dialysis Differential diagnoses include: KY/unstable angina, V. tach, bradycardia, hyperkalemia, fluid overload Clinical course Patient placed on stretcher. on classroom monitor. After initial history and physical I ordered labs, EKG EKG shows peaked T waves in lateral leads. Given calcium, insulin/D50, Kayexalate labs reviewed- potassium 6.0. BUN/Cr elevated. Hemoglobin/hematocrit normal.trop elevated given morphine and aspirin. Case discussed with Dr. Alfaro and he agreed to accept the patient to his service for further care and support I. I feel this is a highly complex case requiring extensive working including E KG/Rhythm strip, Xray/CT/US, Blood/urine lab work, repeat exams while in ED, and administration of strong opiates/narcotics for pain control, admission to hospital or close patient follow up. Diagnosis - hyperkalemia, ESRD admitted to telemetry in serious condition Laboratory Tests Test 08/31/20 21:15 08/31/20 21:41 White Blood Count 11.5 K/UL (4.8-10.8) H Red Blood Count 2.59 M/UL (4.20-5.40) L Hemoglobin 8.7 G/DL (12.0-16.0) L Hematocrit 26.4 % (37.0-47.0) L Mean Corpuscular Volume 102 FL (80-99) H Mean Corpuscular Hemoglobin 33.6 PG (27.0-31.0) H Mean Corpuscular Hemoglobin Concent 32.9 G/DL (32.0-36.0) Red Cell Distribution Width 13.5 % (11.6-14.8) Platelet Count 299 K/UL (150-450) Mean Platelet Volume 6.6 FL (6.5-10.1) Neutrophils (%) (Auto) 76.4 % (45.0-75.0) H Lymphocytes (%) (Auto) 15.9 % (20.0-45.0) L Monocytes (%) (Auto) 3.5 % (1.0-10.0) Eosinophils (%) (Auto) 3.2 % (0.0-3.0) H Basophils (%) (Auto) 1.0 % (0.0-2.0) Sodium Level 136 MMOL/L (136-145) Potassium Level 6.0 MMOL/L (3.5-5.1) *H Chloride Level 98 MMOL/L (98-107) Carbon Dioxide Level 20 MMOL/L (21-32) L Blood Urea Nitrogen 92 mg/dL (7-18) H Creatinine 13.4 MG/DL (0.55-1.30) H Estimat Glomerular Filtration Rate 3.1 mL/min (>60) Glucose Level 95 MG/DL (74-106) Calcium Level 9.0 MG/DL (8.5-10.1) Total Bilirubin 0.4 MG/DL (0.2-1.0) Aspartate Amino Transf (AST/SGOT) 15 U/L (15-37) Alanine Aminotransferase (ALT/SGPT) 19 U/L (12-78) Alkaline Phosphatase 93 U/L (46-116) Troponin I 0.070 ng/mL (0.000-0.056) Pro-B-Type Natriuretic Peptide > 51863 pg/mL (0-125) H Total Protein 7.1 G/DL (6.4-8.2) Albumin 3.7 G/DL (3.4-5.0) Globulin 3.4 g/dL Albumin/Globulin Ratio 1.1 (1.0-2.7) POC Whole Blood Glucose 97 MG/DL (74-106) EKG Diagnostic Results Troponin ordered: Yes Rate: normal Rhythm: NSR ST Segments: other - peaked twaves in lateral leads ASA given to the pt in ED: Yes Rhythm Strip Diag. Results EP Interpretation: yes Rhythm: NSR, no PVC's, no ectopy Chest X-Ray Diagnostic Results Chest X-Ray Diagnostic Results : Chest X-Ray Ordered: Yes # of Views/Limited/Complete: 1 View Indication: Chest Pain EP Interpretation: Yes Interpretation: no consolidation, no effusion, no pneumothorax, no acute cardiopulmonary disease Impression: No acute disease Electronically Signed by: Electronically signed by Tiburcio Christy MD Last Vital Signs Date Time Temp Pulse Resp B/P (MAP) Pulse Ox O2 Delivery O2 Flow Rate FiO2 08/31/20 21:20 100 18 Room Air 08/31/20 21:20 98.4 212/115 95 Status: improved Disposition: ADMITTED INPATIENT Condition: Serious Referrals: NOT CHOSEN IPA/,REFERRING (PCP) Tiburcio Christy MD Aug 31, 2020 22:38
[2020-08-31] MEDS ORDERED: Morphine Sulfate 4mg/ml Inj (IV USE ONLY) IVP ONE (22:45)
[2020-08-31 23:03] VITALS: BP 154/88
--- NOTE | 2020-08-31 23:08 | NUR ---
ED Nurse Note: Report given to CONSTANTIN Iniguez.
--- NOTE | 2020-08-31 23:09 | NUR ---
NURSE NOTES: Report received from CONSTANTIN Ray. Awaiting for patient's arrival.
--- NOTE | 2020-08-31 23:15 | NUR ---
TRANSFER TO FLOOR: Patient transferred to telemetry as ordered, per ERMD. Report given to CONSTANTIN Iniguez. Patient transported via gurney with surveillance monitor in stable condition accompanied by 2 RNs.
--- NOTE | 2020-08-31 23:20 | NUR ---
NURSE NOTES: Received patient from E.R via [facility]. Patient is awake, AL x 4. Oriented to room and telemetry unit, belongings list checked and verified. Place nutritional services host shows sinus rhythm with no chest pain reported. On room air, sating 97%. IV site is on right AC G-20 saline locked that is patent and intact. HD access on left upper arm fistula. Safety measures are in place, bed in lowest and locked position, side rails up x 2, call light button and bedside table within reach, instructed to call for any assistance needed. Will call MD for admission orders.
--- NOTE | 2020-08-31 23:50 | NUR ---
NURSE NOTES: Called Dr. Alfaro and informed him about this admission. Received an orders, will carry out.
[2020-09-01] VITALS: BP 159/92
[2020-09-01] MEDS ORDERED: Nitroglycerin Subl 0.4mg tab SL PRN (00:30)
[2020-09-01 04:00] VITALS: BP 176/104
--- NOTE | 2020-09-01 06:51 | NUR ---
NURSE HAND-OFF REPORT: Important Events on Shift: Patient compalaints of abdominal pain, non radiating scale of 3, tylenol 650 mg was given. Blood pressure around 4 a.m was, 176/[address] Alfaro and awaiting for call back. Patient Status: Patient is asleep in stable condition. Plan of care endorsed. Diet: Cardiac diet Pending Orders: 2DECHO Pending Results/Labs: Am labs result Pending MD notification:none Latest Vital Signs: Temperature 98.9 , Pulse 80 , B/P 176 /104 , Respiratory Rate 20 , O2 SAT 94 , Room Air, O2 Flow Rate . Vital Sign Comment: elevated EKG Rhythm: Sinus Rhythm Rhythm change?: N MD Notified?: - MD Response: Latest Villar Fall Score: 20 Fall Risk: Low Risk Safety Measures: Call light Within Reach, Bed Alarm , Side Rails Side Rails x2, Bed position Low and Locked. Fall Precautions: Patient Fall Education Report given to CONSTANTIN Suero.
--- NOTE | 2020-09-01 07:14 | NUR ---
NURSE NOTES: Pt received from Toshia Lincoln RN. Pt in bed sleeping, bed low and locked, call light within reach, no sob or distress noted. Will follow up with Dr. Alfaro re possible cardio consult given labs.
--- NOTE | 2020-09-01 07:26 | NUR ---
CASE MANAGEMENT:REVIEW 34 YR OLD FEMALE WALKED INTO ER 9LIVES IN [place]) CC; CHEST PAIN PMH: ESRD MWF SI:HYPERKALEMIA 98.4 100 22 212/115 95% ON RA WBC+11.5 K+6.0 BUN+92 CR+13.4 TROPONIN(+) 0.070 BNP+>10851 IS: IV CA GLUCONATE IV INSULIN IV D50W KAYEXALATE IV MORPHINE ASA PO : TO TELEMETRY DCP: FROM HOME PLAN: 2DECHO
[2020-09-01] MEDS ORDERED: HydrALAZINE 50mg tab ORAL PRN (07:30)
[2020-09-01 08:00] VITALS: BP 218/122
[2020-09-01 08:40] LABS: HEMATOCRIT 22.7 % (37.0-47.0); HEMOGLOBIN 7.9 G/DL (12.0-16.0); MEAN CORPUSCULAR VOLUME 98 FL (80-99); PLATELET COUNT 272 K/UL (150-450); RED BLOOD COUNT 2.33 M/UL (4.20-5.40); WHITE BLOOD COUNT 11.9 K/UL (4.8-10.8)
--- NOTE | 2020-09-01 09:00 | NUR ---
NURSE NOTES: pt BP 218/122 and complaining of 9/10 epigastric pain states that the tylenol that was given made the pain worse. Immediately gave PRN hydralazine and contacted Dr Alfaro to ask for stronger pain medication.
[2020-09-01 09:09] LABS: ALANINE AMINOTRANSFERASE 20 U/L (12-78); ALBUMIN 3.1 G/DL (3.4-5.0); ALBUMIN/GLOBULIN RATIO 1.2 (1.0-2.7); ALKALINE PHOSPHATASE 91 U/L (46-116); ANION GAP 17 mmol/L (5-15); ASPARTATE AMINO TRANSFERASE 29 U/L (15-37); BILIRUBIN,TOTAL 0.4 MG/DL (0.2-1.0); BLOOD UREA NITROGEN 95 mg/dL (7-18); CALCIUM 8.4 MG/DL (8.5-10.1); CARBON DIOXIDE 20 MMOL/L (21-32); CHLORIDE 100 MMOL/L (98-107); CHOLESTEROL 134 MG/DL (< 200); HDL CHOLESTEROL 38 MG/DL (40-60); POTASSIUM 5.6 MMOL/L (3.5-5.1); SODIUM 137 MMOL/L (136-145); TRIGLYCERIDES 97 MG/DL (30-150)
--- NOTE | 2020-09-01 10:12 | Diagnostic Imaging Report ---
Indication: Chest pain Technique: XRAY Chest 1v Comparison: 08/12/2020 Findings: Heart appears enlarged but stable in size. Mediastinal contours are sharp. There is no focal airspace consolidation. No pleural effusion or pneumothorax. Questionable nodular density projecting over the left lower lung which may represent a nipple shadow. No acute osseous abnormality. Chronic fracture of the left clavicle. Impression: No radiographic evidence of acute cardiopulmonary disease. Nodular density left lower lung which may represent a nipple shadow. Repeat exam with nipple markers suggested. Chronic fracture deformity of the left clavicle.
[2020-09-01] MEDS: Heparin 5000 units/ml inj SUBQ SCH ×2 (10:24→20:58)
[2020-09-01] MEDS: Aspirin Baby 81mg ORAL SCH (10:24)
--- NOTE | 2020-09-01 10:25 | NUR ---
NURSE NOTES: BP is now 180/101, pt complained of nausea so Zofran given.
--- NOTE | 2020-09-01 11:50 | Consultation ---
Consult Note Consult Note I am asked to evaluate the patient at the request of Dr. Alfaro for dialysis management Patient known to me from her previous admission here on August 12 Patient seen in room 202. Discussed with RN. Full note to follow Emergency room note: Chief Complaint: Chest Pain 34-year-old female presents with chest pain. History of end-stage renal disease. On dialysis. Gets dialysis Sunday. Is visiting from out of town and was unable to arrange for her dialysis on Sunday. Pain is sharp, 7 out of 10, nonradiating. Denies fevers or chills. No other aggravating relieving factors. 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 COVID-19 Screening: Negative COVID-19 COVID-19 Testing Source: unk Past Medical History: renal disease, dialysis Past Surgical History: none Pertinent Family History: none Social History: Denies: smoking, alcohol use, drug use Last Menstrual Period: n/a Now: No Immunizations: UTD Reviewed Nursing Documentation: PMH: Agreed; PSxH: Agreed Past Medical History: No History, Except For Hx Hypertension: Yes Hx Dialysis: Yes - MWF Vital Signs in the emergency room Date Time Temp Pulse Resp B/P (MAP) Pulse Ox O2 Delivery O2 Flow Rate FiO2 08/31/20 21:14 98.4 100 18 212/115 (147) 95 Room Air PHYSICAL EXAMINATION: VITAL SIGNS: Blood pressure is 177/92, pulse 63, respirations 18, and temperature 98.5. HEAD AND NECK: Showed no JVD. LUNGS: Clear. CARDIOVASCULAR: Regular S1 and S2 with no gallop or murmur. ABDOMEN: Soft. EXTREMITIES: No pitting edema. AV shunt to the left arm. LABORATORY AND DIAGNOSTIC DATA: Labs show white count of 8.9, hemoglobin 8.4, hematocrit 25.7, and platelet count is 254. Sodium 138, potassium 3.9, BUN of 48, creatinine 9.2, and glucose of 83. Initial troponin was elevated at 0.07, two subsequent troponins are negative. BNP more than 35,000. EKG showed normal sinus rhythm, normal electrocardiogram. . Assessment/Plan patient presents to emergency room, missed dialysis, has high potassium Chest pain Abdominal pain, nausea and vomiting Hypertensive kidney disease, Hypertension [id number] Hemodialysis will be ordered for today Keep the blood pressure, blood sugar, in control Monitor renal parameters 2D Echocardiogram Per orders Joe Garg MD Sep 01, 2020 11:50
[2020-09-01 12:00] VITALS: BP 162/102
--- NOTE | 2020-09-01 12:16 | Consultation ---
History of Present Illness General Date patient seen: Sep 01, 2020 Chief Complaint: Chest Pain Present Illness HPI 34-year-old female with hx of ESRF on HD Sunday. 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 presents with chest pain. She has an epigastric pain with nausea. No other aggravating relieving factors. Denies any other associated symptoms. She is admitted to telemetry for further management. Allergies: Coded Allergies: AMLODIPINE (Verified Allergy, Intermediate, 08/24/20) Medication History Scheduled Nifedipine (Nifedipine*), 90 MG ORAL BID, (Reported) [clonidine patch], 3 MG TOPIC DAILY, (Reported) Miscellaneous Medications Calcium Acetate (Calcium Acetate), 1 GM MC, (Reported) Patient History Healthcare decision maker Resuscitation status Advanced Directive on File Past Medical/Surgical History Past Medical/Surgical History: (1) ESRD on hemodialysis (2) History of hypertension (3) Poor compliance Review of Systems All Other Systems: negative except mentioned in HPI Physical Exam General Appearance: thin Lines, tubes and drains: peripheral HEENT: normocephalic, atraumatic Neck: non-tender, normal alignment, limited range of motion Respiratory/Chest: chest wall non-tender, lungs clear Breasts: no masses Abdomen: normal bowel sounds, non tender Genitourinary/Rectal: normal genital exam Extremities: normal range of motion Skin Exam: normal pigmentation 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 Last 24 Hour Vital Signs Date Time Temp Pulse Resp B/P (MAP) Pulse Ox O2 Delivery O2 Flow Rate FiO2 09/01/20 09:01 218/122 09/01/20 09:00 Room Air 09/01/20 08:00 70 09/01/20 08:00 98.1 75 22 218/122 (154) 100 09/01/20 04:00 98.9 80 20 176/104 (128) 94 09/01/20 04:00 76 09/01/20 00:36 Room Air 09/01/20 00:00 75 09/01/20 00:00 97.5 65 19 159/92 (114) 97 08/31/20 23:15 97.5 71 22 154/88 96 Room Air 08/31/20 23:03 71 22 154/88 96 Room Air 08/31/20 21:20 100 18 Room Air 08/31/20 21:20 98.4 86 18 212/115 95 Room Air 08/31/20 21:14 98.4 100 18 212/115 (147) 95 Room Air Intake and Output 08/31/20 09/01/20 19:00 07:00 Intake Total 350 ml Balance 350 ml Intake Oral 350 ml Laboratory Tests Test 08/31/20 21:15 08/31/20 21:41 09/01/20 08:29 White Blood Count 11.5 K/UL (4.8-10.8) H 11.9 K/UL (4.8-10.8) H Red Blood Count 2.59 M/UL (4.20-5.40) L 2.33 M/UL (4.20-5.40) L Hemoglobin 8.7 G/DL (12.0-16.0) L 7.9 G/DL (12.0-16.0) L Hematocrit 26.4 % (37.0-47.0) L 22.7 % (37.0-47.0) L Mean Corpuscular Volume 102 FL (80-99) H 98 FL (80-99) Mean Corpuscular Hemoglobin 33.6 PG (27.0-31.0) H 33.9 PG (27.0-31.0) H Mean Corpuscular Hemoglobin Concent 32.9 G/DL (32.0-36.0) 34.7 G/DL (32.0-36.0) Red Cell Distribution Width 13.5 % (11.6-14.8) 14.0 % (11.6-14.8) Platelet Count 299 K/UL (150-450) 272 K/UL (150-450) Mean Platelet Volume 6.6 FL (6.5-10.1) 6.6 FL (6.5-10.1) Neutrophils (%) (Auto) 76.4 % (45.0-75.0) H % (45.0-75.0) Lymphocytes (%) (Auto) 15.9 % (20.0-45.0) L % (20.0-45.0) Monocytes (%) (Auto) 3.5 % (1.0-10.0) % (1.0-10.0) Eosinophils (%) (Auto) 3.2 % (0.0-3.0) H % (0.0-3.0) Basophils (%) (Auto) 1.0 % (0.0-2.0) % (0.0-2.0) Sodium Level 136 MMOL/L (136-145) 137 MMOL/L (136-145) Potassium Level 6.0 MMOL/L (3.5-5.1) *H 5.6 MMOL/L (3.5-5.1) H Chloride Level 98 MMOL/L (98-107) 100 MMOL/L (98-107) Carbon Dioxide Level 20 MMOL/L (21-32) L 20 MMOL/L (21-32) L Blood Urea Nitrogen 92 mg/dL (7-18) H 95 mg/dL (7-18) H Creatinine 13.4 MG/DL (0.55-1.30) H 14.0 MG/DL (0.55-1.30) H Estimat Glomerular Filtration Rate 3.1 mL/min (>60) 3.0 mL/min (>60) Glucose Level 95 MG/DL (74-106) 89 MG/DL (74-106) Calcium Level 9.0 MG/DL (8.5-10.1) 8.4 MG/DL (8.5-10.1) L Total Bilirubin 0.4 MG/DL (0.2-1.0) 0.4 MG/DL (0.2-1.0) Aspartate Amino Transf (AST/SGOT) 15 U/L (15-37) 29 U/L (15-37) Alanine Aminotransferase (ALT/SGPT) 19 U/L (12-78) 20 U/L (12-78) Alkaline Phosphatase 93 U/L (46-116) 91 U/L (46-116) Troponin I 0.070 ng/mL (0.000-0.056) 0.055 ng/mL (0.000-0.056) Pro-B-Type Natriuretic Peptide > 63083 pg/mL (0-125) H Total Protein 7.1 G/DL (6.4-8.2) 5.6 G/DL (6.4-8.2) L Albumin 3.7 G/DL (3.4-5.0) 3.1 G/DL (3.4-5.0) L Globulin 3.4 g/dL 2.5 g/dL Albumin/Globulin Ratio 1.1 (1.0-2.7) 1.2 (1.0-2.7) POC Whole Blood Glucose 97 MG/DL (74-106) Neutrophils % (Manual) Pending Lymphocytes % (Manual) Pending Platelet Estimate Pending Platelet Morphology Pending Anion Gap 17 mmol/L (5-15) H Phosphorus Level 10.0 MG/DL (2.5-4.9) H Magnesium Level 2.5 MG/DL (1.8-2.4) H Triglycerides Level 97 MG/DL (30-150) Cholesterol Level 134 MG/DL (< 200) LDL Cholesterol 71 mg/dL (<100) HDL Cholesterol 38 MG/DL (40-60) L Cholesterol/HDL Ratio 3.5 (3.3-4.4) Height (Feet): 5 Height (Inches): 5.00 Weight (Pounds): 110 Medications Current Medications Medications (Trade) Dose Ordered Sig/Dexter Route PRN Reason Start Time Stop Time Status Last Admin Dose Admin Acetaminophen (Tylenol) 650 mg Q4H PRN ORAL Mild Pain (Pain Scale 1-3) 09/01/20 00:30 10/01/20 00:29 09/01/20 02:14 Aspirin (ASA) 81 mg DAILY ORAL 09/01/20 09:00 10/16/20 08:59 09/01/20 10:24 Docusate Sodium (Colace) 100 mg THREE TIMES A DAY ORAL 09/01/20 13:00 10/01/20 12:59 Heparin Sodium (Porcine) (Heparin 5000 units/ml) 5,000 units EVERY 12 HOURS SUBQ 09/01/20 09:00 10/16/20 08:59 09/01/20 10:24 Hydralazine HCl (Apresoline) 50 mg Q4H PRN ORAL For High Blood Pressure 09/01/20 12:00 11/30/20 07:29 Minoxidil (Loniten) 2.5 mg Q12HR ORAL 09/01/20 12:00 11/30/20 11:59 UNV Nitroglycerin (Ntg) 0.4 mg Q5M PRN SL Prn Chest Pain 12/9/20 00:30 10/01/20 00:29 Ondansetron HCl (Zofran) 4 mg Q4H PRN IVP Nausea & Vomiting 09/01/20 00:30 10/01/20 00:29 09/01/20 10:31 Pantoprazole (Protonix) 40 mg EVERY 12 HOURS ORAL 09/01/20 21:00 10/01/20 20:59 Sevelamer Carbonate (Renvela) 2,400 mg THREE TIMES A DAY ORAL 09/01/20 13:00 11/30/20 12:59 Assessment/Plan Problem List: (1) Missed dialysis SNOMED: 190293430 (2) Abdominal pain ICD Codes: R10.9 - Unspecified abdominal pain SNOMED: 81263771 (3) ESRD on hemodialysis ICD Codes: N18.6 - End stage renal disease; Z99.2 - Dependence on renal dialysis SNOMED: 94998230, 501361698 (4) Poor compliance ICD Codes: Z91.19 - Patient's noncompliance with other medical treatment and regimen SNOMED: 2869865 (5) History of hypertension ICD Codes: Z86.79 - Personal history of other diseases of the circulatory system SNOMED: 537721624 Assessment/Plan: symptomatic treatment with H2 chelsea and Carafate for abdominal pain. HD by nephrology monitor BP and adjust BP meds Zofran for nausea cxr reviewed, there is no fluid overload. Vanessa Nix MD Sep 01, 2020 12:16
--- NOTE | 2020-09-01 12:43 | NUR ---
NURSE NOTES: CECILIA called for dialysis today
--- NOTE | 2020-09-01 12:55 | History & Physical ---
History and Physical History & Physicial Dictated for Int med-DR Alfaro no. [id number]. Chaitanya Mata MD Sep 01, 2020 12:55
[2020-09-01] MEDS ORDERED: Mylanta II UD 30ml ORAL PRN (13:00)
[2020-09-01] MEDS: Sucralfate 1gm tab ORAL SCH ×3 (13:07→20:56)
[2020-09-01] MEDS: Morphine Sulfate 4mg/ml Inj (IV USE ONLY) IVP PRN (13:07)
[2020-09-01] MEDS: Docusate 100mg cap ORAL SCH ×2 (13:07→17:32)
[2020-09-01] MEDS: Minoxidil 2.5mg tab ORAL SCH ×2 (13:07→20:56)
[2020-09-01 16:00] VITALS: BP 174/93
[2020-09-01] MEDS: HydrALAZINE 50mg tab ORAL PRN ×2 (16:33→20:56)
[2020-09-01] MEDS: Morphine Sulfate 2mg/ml Inj(IV/IM USE ONLY) IVP PRN ×2 (16:39→20:57)
--- NOTE | 2020-09-01 18:01 | History and Physical Report ---
DATE OF ADMISSION: 08/31/2020 CHIEF COMPLAINT: The patient is a 34-year-old female, who presents with chief complaint of chest pain. HISTORY OF PRESENT ILLNESS: The patient was admitted to [facility] in July 2020. Please see history and physical and discharge summary dictated at that time. The patient has a history of end-stage renal disease. The patient is currently undergoing hemodialysis every Sunday, Sunday, and Sunday. The patient is visiting from [place]. The patient apparently had dialysis on Sunday, August 30, 2020. The patient presented to [facility] complaining of chest pain. Chest pain began in the morning of August 31, 2020. Chest pain is substernal. There is no radiation to the jaw or to the shoulder. The patient presented to [facility]. The patient was found to have potassium of 6.0. The patient is admitted with hyperkalemia and chest pain to rule out acute coronary syndrome. REVIEW OF SYSTEMS: CONSTITUTIONAL: The patient denies weight loss or weight gain. The patient denies fevers or chills. HEENT: The patient denies ear or throat pain. The patient denies headache. CARDIOVASCULAR: The patient complains of chest pain as above. The patient denies palpitations. CHEST: The patient denies wheezing or shortness of breath. ABDOMEN: The patient denies nausea, vomiting, diarrhea, or constipation. GENITOURINARY: The patient denies dysuria or increased frequency of urination. NEUROMUSCULAR: The patient denies seizures or generalized weakness. PAST MEDICAL HISTORY: Significant for: 1. End-stage renal disease, on hemodialysis every Sunday, Sunday, and Sunday. 2. Hypertension. PAST SURGICAL HISTORY: Significant for arteriovenous graft of the left arm for dialysis. CURRENT MEDICATIONS: 1. Calcium acetate 1 g p.o. daily. 2. Nifedipine 90 mg p.o. twice daily. 3. Clonidine patch TTS-3 applied q.weekly. ALLERGIES: To amlodipine. SOCIAL HISTORY: The patient is single. The patient denies tobacco or alcohol use. PHYSICAL EXAMINATION: VITAL SIGNS: Temperature 98.4, respirations 18, pulse 100, blood pressure 212/115. GENERAL: The patient is a well-developed, well-nourished female, in no apparent distress. HEENT: Eyes, pupils equal and responsive to light and accommodation. Extraocular movements are intact. NECK: Supple without lymphadenopathy. CHEST: Lungs are clear to auscultation bilaterally without wheezes or rales. CARDIOVASCULAR: Regular rhythm and rate. S1, S2 normal without murmurs, rubs, or gallops. ABDOMEN: Soft, nontender, and nondistended. Positive bowel sounds. No evidence of hepatosplenomegaly. Currently, no rebound or guarding noted. EXTREMITIES: Negative for clubbing, cyanosis, or edema. RECTAL: Not performed. GENITAL: Not performed. NEUROLOGIC: Cranial nerves II through XII are grossly intact without focal deficits. Motor strength is 5/5 bilaterally intact. Deep tendon reflexes are 2+, plantar. LABORATORY STUDIES: WBC 12.5, hemoglobin 8.7, hematocrit 26.4, platelets 219,000. Sodium 136, potassium 6.0, chloride 98, CO2 of 20, BUN 92, creatinine 13.4, glucose 95. Troponin elevated at 0.070. BNP elevated at greater than 35,000. Chest x-ray was reported as no acute disease. EKG demonstrated sinus tachycardia at 100 beats per minute. No ST or Q-waves noted. There are peaked T-waves in the lateral leads. Otherwise, normal EKG. ASSESSMENT: This is a 34-year-old female with: 1. Chest pain. 2. Hyperkalemia. 3. End-stage renal disease. 4. Hypertension. 5. Congestive heart failure. TREATMENT: 1. Chest pain/congestive heart failure. Cardiology consultation has been obtained with Dr. Rogelio Lowery. Serial troponin levels will be performed. Follow recommendations of Cardiology. 2. End-stage renal disease. The patient is currently undergoing hemodialysis every Sunday, Sunday, and Sunday. A Nephrology consultation has been obtained with Dr. Joe Garg. 3. Hyperkalemia. The patient has received Kayexalate. The patient is scheduled for emergent dialysis. Follow recommendations of Nephrology. 4. Hypertension. Continue hydralazine and clonidine as above. 5. Congestive heart failure. As above, Cardiology consultation has been obtained with Dr. Rogelio Lowery. Chaitanya Mata M.D. DR: ERICA/BRODERICK JOB#: [id number] CC:
--- NOTE | 2020-09-01 19:30 | NUR ---
NURSE HAND-OFF REPORT: Important Events on Shift:[elevated K and BP throughout shift, being dialyzed now. Complained of epigastric pain which was resolved with morphine] Patient Status: [in bed being dialyzed] Diet: [Renal] Pending Orders: [Ask Dr Alfaro if he would like a cardio consult given BNP, esure he is aware of hgb] Pending Results/Labs:[] Pending MD notification:[] Latest Vital Signs: Temperature 98.1 , Pulse 66 , B/P 174 /93 , Respiratory Rate 20 , O2 SAT 94 , Room Air, O2 Flow Rate . Vital Sign Comment: [bp elevate during shift] EKG Rhythm: Sinus Rhythm Rhythm change?: N MD Notified?: - MD Response: Latest Villar Fall Score: 20 Fall Risk: Low Risk Safety Measures: Call light Within Reach, Bed Alarm , Side Rails Side Rails x2, Bed position Low and Locked. Fall Precautions: Yellow Socks Patient Fall Education Report given to [Toshia Lincoln RN].
--- NOTE | 2020-09-01 19:31 | NUR ---
NURSE NOTES: Report received from CONSTANTIN Suero. Patient is awake on bed, alert and oriented x 4. Cardica monitor is in place, shows sinus rhythm with no chest pain reported. Patient is on room air, sating 95%. On renal diet, instructed and amenable. HD access is on left upper arm AV shunt. IV site is on right AC G-20 saline locked that is patent and intact. Safety measures are in place, bed in lowest and locked position, side rails up x 2, call light button and bedside table within reach, instructed to call for any assistance needed. Will continue plan of care.
[2020-09-01 20:00] VITALS: BP 170/80
[2020-09-02] VITALS: BP 189/82
[2020-09-02] MEDS: Morphine Sulfate 4mg/ml Inj (IV USE ONLY) IVP PRN (00:03)
[2020-09-02] MEDS: HydrALAZINE 50mg tab ORAL PRN ×2 (01:22→05:57)
--- NOTE | 2020-09-02 02:06 | NUR ---
NURSE NOTES: Report given to CONSTANTIN Farooq. Patient is awake on bed, blood pressure is still elevated and patient has been complaining of headache. Plan of care endorsed.
[2020-09-02] MEDS: Morphine Sulfate 2mg/ml Inj(IV/IM USE ONLY) IVP PRN (02:25)
--- NOTE | 2020-09-02 02:30 | NUR ---
NURSE NOTES: Receive a report from CONSTANTIN Valencia. Pt is asleep but easily aroused. Still complaining for bilateral temporal area. Will provide prn pain medication. BP: 168/97mmHg. Had prn anti-HTN medication. Will continue to monitor.
[2020-09-02 04:45] VITALS: BP 177/92
--- NOTE | 2020-09-02 06:00 | NUR ---
NURSE NOTES: After Zofran and Morphine IVS, pt fell asleep but had green emesis about 200ml. Given prn anti-HTN. Will continue to monitor.
--- NOTE | 2020-09-02 07:25 | NUR ---
NURSE HAND-OFF REPORT: Important Events on Shift:LENNON, N/V, high BP-given prn Morphine x3, anti-HTN med x2, Zofran x1 Patient Status: [] Diet: [Renal diet] Pending Orders: [] Pending Results/Labs:[] Pending MD notification:[] Latest Vital Signs: Temperature 98.5 , Pulse 63 , B/P 177 /92 , Respiratory Rate 20 , O2 SAT 94 , Room Air, O2 Flow Rate . Vital Sign Comment: [] EKG Rhythm: Sinus Rhythm Rhythm change?: N MD Notified?: - MD Response: Latest Villar Fall Score: 20 Fall Risk: Low Risk Safety Measures: Call light Within Reach, Bed Alarm , Side Rails Side Rails x2, Bed position Low and Locked. Fall Precautions: Yellow Socks Patient Fall Education Report given to CYNTHIA Diaz. Round is made.
[2020-09-02 07:40] LABS: BASOPHILS % (AUTO) 1.4 % (0.0-2.0); EOSINOPHILS % (AUTO) 3.3 % (0.0-3.0); HEMATOCRIT 25.7 % (37.0-47.0); HEMOGLOBIN 8.4 G/DL (12.0-16.0); LYMPHOCYTES % (AUTO) 10.4 % (20.0-45.0); MEAN CORPUSCULAR VOLUME 101 FL (80-99); MONOCYTES % (AUTO) 5.4 % (1.0-10.0); NEUTROPHILS % (AUTO) 79.6 % (45.0-75.0); PLATELET COUNT 254 K/UL (150-450); RED BLOOD COUNT 2.54 M/UL (4.20-5.40); RED CELL DISTRIBUTION WIDTH 13.4 % (11.6-14.8); WHITE BLOOD COUNT 8.9 K/UL (4.8-10.8)
--- NOTE | 2020-09-02 07:45 | NUR ---
NURSE NOTES: Report received from CONSTANTIN Farooq. Patient is awake, alert and oriented x 4. monitor and storage bin tender in place. no chest pain reported. Patient is on room air with adequate O2 saturation. On renal diet and tolerating well. HD access is on left upper arm AV shunt with thrill and bruit presents. PIV site is on right AC G-20 saline locked that is patent and intact. Safety measures are in place, bed in lowest and locked position, side rails up x 2, call light button and bedside table within reach, instructed to call for any assistance needed. Will continue plan of care.
[2020-09-02 08:00] VITALS: BP 166/90
[2020-09-02 08:23] LABS: ALANINE AMINOTRANSFERASE 37 U/L (12-78); ALBUMIN 3.1 G/DL (3.4-5.0); ALBUMIN/GLOBULIN RATIO 0.9 (1.0-2.7); ALKALINE PHOSPHATASE 93 U/L (46-116); ANION GAP 13 mmol/L (5-15); ASPARTATE AMINO TRANSFERASE 28 U/L (15-37); BILIRUBIN,TOTAL 0.4 MG/DL (0.2-1.0); BLOOD UREA NITROGEN 48 mg/dL (7-18); CALCIUM 8.2 MG/DL (8.5-10.1); CARBON DIOXIDE 28 MMOL/L (21-32); CHLORIDE 98 MMOL/L (98-107); CHOLESTEROL 138 MG/DL (< 200); CREATININE 9.2 MG/DL (0.55-1.30); FERRITIN 614 NG/ML (8-388); GAMMA GLUTAMYL TRANSPEPTIDASE 42 U/L (5-85); HDL CHOLESTEROL 45 MG/DL (40-60); PHOSPHORUS 6.9 MG/DL (2.5-4.9); POTASSIUM 3.9 MMOL/L (3.5-5.1); SODIUM 138 MMOL/L (136-145); TRIGLYCERIDES 116 MG/DL (30-150)
[2020-09-02 08:38] LABS: % IRON SATURATION 38 % (15-50); IRON 68 ug/dL (50-175); TOTAL IRON BINDING CAPACITY 180 ug/dL (250-450)
[2020-09-02] MEDS: Minoxidil 2.5mg tab ORAL SCH (08:57)
[2020-09-02] MEDS: Sucralfate 1gm tab ORAL SCH (08:57)
[2020-09-02] MEDS: Aspirin Baby 81mg ORAL SCH (08:57)
[2020-09-02] MEDS: Docusate 100mg cap ORAL SCH (08:57)
[2020-09-02] MEDS: Heparin 5000 units/ml inj SUBQ SCH (09:02)
--- NOTE | 2020-09-02 09:16 | Cardiac Electrophysiology PN ---
Subjective Subjective Seen and examined and DW RN [phone] Objective Last 24 Hour Vital Signs Date Time Temp Pulse Resp B/P (MAP) Pulse Ox O2 Delivery O2 Flow Rate FiO2 09/02/20 08:57 166/90 09/02/20 05:57 177/92 09/02/20 04:45 98.5 63 20 177/92 (120) 94 09/02/20 03:36 77 09/02/20 01:22 189/82 09/02/20 00:00 65 09/02/20 00:00 98.8 63 20 189/82 (117) 95 09/01/20 21:00 Room Air 09/01/20 20:56 175/80 09/01/20 20:56 175/80 09/01/20 20:00 74 09/01/20 20:00 98.2 61 20 170/80 (110) 95 09/01/20 17:09 98.1 09/01/20 16:33 174/93 09/01/20 16:00 98.1 66 20 174/93 (120) 94 09/01/20 16:00 71 09/01/20 13:37 98.1 09/01/20 13:07 172/105 09/01/20 12:00 98.1 77 20 162/102 (122) 96 09/01/20 12:00 82 Intake and Output 09/01/20 09/02/20 19:00 07:00 Output Total 200 ml Balance -200 ml Output Emesis 200 ml Laboratory Tests Test 09/02/20 06:49 White Blood Count 8.9 K/UL (4.8-10.8) Red Blood Count 2.54 M/UL (4.20-5.40) L Hemoglobin 8.4 G/DL (12.0-16.0) L Hematocrit 25.7 % (37.0-47.0) L Mean Corpuscular Volume 101 FL (80-99) H Mean Corpuscular Hemoglobin 33.3 PG (27.0-31.0) H Mean Corpuscular Hemoglobin Concent 32.9 G/DL (32.0-36.0) Red Cell Distribution Width 13.4 % (11.6-14.8) Platelet Count 254 K/UL (150-450) Mean Platelet Volume 6.6 FL (6.5-10.1) Neutrophils (%) (Auto) 79.6 % (45.0-75.0) H Lymphocytes (%) (Auto) 10.4 % (20.0-45.0) L Monocytes (%) (Auto) 5.4 % (1.0-10.0) Eosinophils (%) (Auto) 3.3 % (0.0-3.0) H Basophils (%) (Auto) 1.4 % (0.0-2.0) Sodium Level 138 MMOL/L (136-145) Potassium Level 3.9 MMOL/L (3.5-5.1) Chloride Level 98 MMOL/L (98-107) Carbon Dioxide Level 28 MMOL/L (21-32) Anion Gap 13 mmol/L (5-15) Blood Urea Nitrogen 48 mg/dL (7-18) H Creatinine 9.2 MG/DL (0.55-1.30) H Estimat Glomerular Filtration Rate 4.8 mL/min (>60) Glucose Level 83 MG/DL (74-106) Hemoglobin A1c 5.1 % (4.3-6.0) Uric Acid 3.2 MG/DL (2.6-7.2) Calcium Level 8.2 MG/DL (8.5-10.1) L Phosphorus Level 6.9 MG/DL (2.5-4.9) H Magnesium Level 2.2 MG/DL (1.8-2.4) Iron Level 68 ug/dL (50-175) Total Iron Binding Capacity 180 ug/dL (250-450) L Percent Iron Saturation 38 % (15-50) Unsaturated Iron Binding 112 ug/dL (112-346) Ferritin 614 NG/ML (8-388) H Total Bilirubin 0.4 MG/DL (0.2-1.0) Gamma Glutamyl Transpeptidase 42 U/L (5-85) Aspartate Amino Transf (AST/SGOT) 28 U/L (15-37) Alanine Aminotransferase (ALT/SGPT) 37 U/L (12-78) Alkaline Phosphatase 93 U/L (46-116) Troponin I 0.056 ng/mL (0.000-0.056) Pro-B-Type Natriuretic Peptide > 45777 pg/mL (0-125) H Total Protein 6.4 G/DL (6.4-8.2) Albumin 3.1 G/DL (3.4-5.0) L Globulin 3.3 g/dL Albumin/Globulin Ratio 0.9 (1.0-2.7) L Triglycerides Level 116 MG/DL (30-150) Cholesterol Level 138 MG/DL (< 200) LDL Cholesterol 76 mg/dL (<100) HDL Cholesterol 45 MG/DL (40-60) Cholesterol/HDL Ratio 3.1 (3.3-4.4) L Vitamin B12 Level 394 PG/ML (193-986) Folate 5.3 NG/ML (8.6-58.9) L Thyroid Stimulating Hormone (TSH) 5.789 uiU/mL (0.358-3.740) Adin Sullivan MD Sep 02, 2020 09:16
--- NOTE | 2020-09-02 10:15 | Consultation ---
DATE OF CONSULTATION: 09/02/2020 CARDIOLOGY CONSULTATION CONSULTING PHYSICIAN: Adin Sullivan MD REFERRING PHYSICIAN: Pilo Alfaro MD REASON FOR CONSULTATION: Management of accelerated hypertension and chest pain. HISTORY OF PRESENT ILLNESS: The patient is a very pleasant 34-year-old lady with history of hypertension, end-stage renal disease on hemodialysis on Sunday, Sunday, and Sunday, was visiting out of town and was unable arrange for her dialysis. Chest pain was 7/10 and was not radiating. The patient's blood pressure was also quite elevated. Cardiology consultation was requested for further evaluation. REVIEW OF SYSTEMS: Negative other than what was mentioned in history of present illness. PAST MEDICAL HISTORY: As mentioned above. ALLERGIES: She is allergic to amlodipine. FAMILY HISTORY: Noncontributory. SOCIAL HISTORY: Does not smoke or drink alcohol. PHYSICAL EXAMINATION: VITAL SIGNS: Blood pressure is 177/92, pulse 63, respirations 18, and temperature 98.5. HEAD AND NECK: Showed no JVD. LUNGS: Clear. CARDIOVASCULAR: Regular S1 and S2 with no gallop or murmur. ABDOMEN: Soft. EXTREMITIES: No pitting edema. AV shunt to the left arm. LABORATORY AND DIAGNOSTIC DATA: Labs show white count of 8.9, hemoglobin 8.4, hematocrit 25.7, and platelet count is 254. Sodium 138, potassium 3.9, BUN of 48, creatinine 9.2, and glucose of 83. Initial troponin was elevated at 0.07, two subsequent troponins are negative. BNP more than 35,000. EKG showed normal sinus rhythm, normal electrocardiogram. ASSESSMENT AND PLAN: 1. Chest pain and elevated troponin. I doubt chest pain is atypical. The two subsequent troponins are negative and almost same range of and 0.05. Her EKG is completely normal. This could be secondary to accelerated hypertension. We will get an echocardiogram to evaluate for ejection fraction and wall motion abnormality. In the meantime, keep the patient on aspirin and add beta-chelsea to her medical regimen. 2. Accelerated hypertension. The patient is on minoxidil 2.5 mg b.i.d. I will add p.r.n. clonidine and metoprolol 25 mg b.i.d. 3. End-stage renal disease, on hemodialysis per Dr. Garg. Thank you very much for allowing me to participate in the care of this patient. Please do not hesitate to contact me for any questions regarding my evaluation. Sincerely, Adin Sullivan M.D. DR: Sulema JOB#: [id number] CC:
--- NOTE | 2020-09-02 11:03 | NUR ---
NURSE NOTES: EKG DONE AND IT'S NORMAL SINUS RHYTHM. WILL CONT TO MONITOR.
--- NOTE | 2020-09-02 11:33 | NUR ---
NURSE NOTES: PATIENT ADAMANT TO GO HOME AND WILLING TO LEAVE AMA. PER PATIENT BECAUSE SHE HAD HER HD DONE AND WILL F/U WITH HER PMD OUTSIDE AND ALSO SHE CLAIMED THAT NURSES FROM LAST NIGHT WAS RUDE AND NOT INVOLVING HER WITH HER CARE. HAD EXPLAINED TO PATIENT THE IMPORTANCE AND HER REASONS WHY SHE IS HERE AND REMAINED TO LEAVE AMA. INFORMED DR MARTÍNEZ.
--- NOTE | 2020-09-02 11:45 | NUR ---
NURSE NOTES: REMOVED IV ACCESS AND DIGESTER COOK. PATIENT APPEARED TO BE ASYMPTOMATIC WITH B/P 160/89. AMBULATES WITH STEADY GAIT. HER MOM IN LAW, LATOYA BEEN NOTIFIED. PERSONAL BELONGINGS REVIEWED AND REFUSED TO SIGN. VERIFIED HOME ADDRESS. AWAITS FOR TRANSPORTATION. NO ACUTE RESP DISTRESS NOTED. NO C/O CHEST PAIN. NO N/V NOTED @ THIS TIME.
[2020-09-02 12:00] VITALS: BP 160/89
--- NOTE | 2020-09-02 12:01 | NUR ---
Patient verbalized intention to sign out AMA. Patient insisting she needs to go home. Dr. Alfaro made aware. Pt. called for her own transportation. Awake, alert, oriented, ambulatory with steady gait. heplock D/C'd
--- NOTE | 2020-09-02 12:09 | Pulmonology Progress Note ---
Subjective ROS Limited/Unobtainable: No Constitutional: Reports: no symptoms HEENT: Repors: no symptoms Allergies: Coded Allergies: AMLODIPINE (Verified Allergy, Intermediate, 08/24/20) Objective Last 24 Hour Vital Signs Date Time Temp Pulse Resp B/P (MAP) Pulse Ox O2 Delivery O2 Flow Rate FiO2 09/02/20 09:35 Room Air 09/02/20 09:29 166/90 09/02/20 08:57 166/90 09/02/20 08:00 68 09/02/20 08:00 98.7 71 18 166/90 (115) 93 09/02/20 05:57 177/92 09/02/20 04:45 98.5 63 20 177/92 (120) 94 09/02/20 03:36 77 09/02/20 01:22 189/82 09/02/20 00:00 65 09/02/20 00:00 98.8 63 20 189/82 (117) 95 09/01/20 21:00 Room Air 09/01/20 20:56 175/80 09/01/20 20:56 175/80 09/01/20 20:00 74 09/01/20 20:00 98.2 61 20 170/80 (110) 95 09/01/20 17:09 98.1 09/01/20 16:33 174/93 09/01/20 16:00 98.1 66 20 174/93 (120) 94 09/01/20 16:00 71 09/01/20 13:37 98.1 09/01/20 13:07 172/105 Intake and Output 09/01/20 09/02/20 19:00 07:00 Output Total 200 ml Balance -200 ml Output Emesis 200 ml General Appearance: cachetic HEENT: normocephalic, atraumatic Respiratory: chest wall non-tender, lungs clear Cardiovascular: normal peripheral pulses, normal rate Abdomen: normal bowel sounds, soft, non tender Genitourinary: normal external genitalia Extremities: no cyanosis 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: 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2H, Estimat Glomerular Filtration Rate 4.8, Glucose Level 83, Hemoglobin A1c 5.1, Uric Acid 3.2, Calcium Level 8.2L, Phosphorus Level 6.9H, Magnesium Level 2.2, Iron Level 68, Total Iron Binding Capacity 180L, Percent Iron Saturation 38 , Unsaturated Iron Binding 112, Ferritin 614H, Total Bilirubin 0.4, Gamma Glutamyl Transpeptidase 42, Aspartate Amino Transf (AST/SGOT) 28, Alanine Aminotransferase (ALT/SGPT) 37, Alkaline Phosphatase 93, Troponin I 0.056, P ro-B-Type Natriuretic Peptide > 79876L, Total Protein 6.4, Albumin 3.1L, Globulin 3.3, Albumin/Globulin Ratio 0.9L, Triglycerides Level 116, Cholesterol Level 138, LDL Cholesterol 76, HDL Cholesterol 45, Cholesterol/HDL Ratio 3.1L, Vitamin B12 Level 394, Folate 5.3L, Thyroid Stimulating Hormone (TSH) 5.789H Current Medications Medications (Trade) Dose Ordered Sig/Dexter Route PRN Reason Start Time Stop Time Status Last Admin Dose Admin Acetaminophen (Tylenol) 650 mg Q4H PRN ORAL Mild Pain (Pain Scale 1-3) 09/01/20 00:30 10/01/20 00:29 09/01/20 02:14 Aspirin (ASA) 81 mg DAILY ORAL 09/01/20 09:00 10/16/20 08:59 09/02/20 08:57 Clonidine HCl (Catapres Tab) 0.1 mg Q2H PRN ORAL SBP > 160mmHg 09/02/20 09:15 12/01/20 09:14 09/02/20 09:29 Docusate Sodium (Colace) 100 mg THREE TIMES A DAY ORAL 09/01/20 13:00 10/01/20 12:59 09/02/20 08:57 Heparin Sodium (Porcine) (Heparin 5000 units/ml) 5,000 units EVERY 12 HOURS SUBQ 09/01/20 09:00 10/16/20 08:59 09/02/20 09:02 Metoprolol Tartrate (Lopressor) 25 mg Q12HR ORAL 09/02/20 21:00 12/01/20 20:59 Minoxidil (Loniten) 2.5 mg Q12HR ORAL 09/01/20 12:00 11/30/20 11:59 09/02/20 08:57 Morphine Sulfate (Morphine Sulfate) 2 mg Q4H PRN IVP Moderate Pain (Pain Scale 4-6) 09/01/20 13:00 09/08/20 12:59 09/02/20 02:25 Morphine Sulfate (Morphine Sulfate) 4 mg Q4H PRN IVP Severe Pain (Pain Scale 7-10) 09/01/20 13:00 09/08/20 12:59 09/02/20 00:03 Nitroglycerin (Ntg) 0.4 mg Q5M PRN SL Prn Chest Pain 09/01/20 00:30 10/01/20 00:29 Ondansetron HCl (Zofran) 4 mg Q4H PRN IVP Nausea & Vomiting 09/01/20 00:30 10/01/20 00:29 09/02/20 02:24 Pantoprazole (Protonix) 40 mg EVERY 12 HOURS ORAL 09/01/20 21:00 10/01/20 20:59 09/02/20 08:57 Sevelamer Carbonate (Renvela) 2,400 mg THREE TIMES A DAY ORAL 09/01/20 13:00 11/30/20 12:59 09/02/20 08:57 Sucralfate (Carafate) 1 gm FOUR TIMES A DAY ORAL 09/01/20 13:00 11/30/20 12:59 09/02/20 08:57 Assessment/Plan Problems: (1) Missed dialysis (2) Abdominal pain (3) ESRD on hemodialysis (4) Poor compliance (5) History of hypertension Assessment/Plan feeling better wants to leave HD done monitor BP and adjust BP meds Zofran for nausea cxr reviewed, there is no fluid overload. Vanessa Nix MD Sep 02, 2020 12:09
--- NOTE | 2020-09-02 12:12 | Nephrology Progress Note ---
Assessment/Plan Problem List: (1) Hypertensive emergency (2) ESRD on hemodialysis (3) Hyperkalemia (4) Missed dialysis (5) Poor compliance Assessment patient presents to emergency room, missed dialysis, has high potassium Chest pain Abdominal pain, nausea and vomiting Hypertensive kidney disease, Hypertension [id number] Plan September 02: Patient was dialyzed last night. Ultrafiltration was done. Today's labs reviewed. Electrolytes much improved. Patient blood pressure remains other controlled. Patient aims to sign AGAINST MEDICAL ADVICE as she di d last time right after she was urgently dialyzed. Compliance with dialysis emphasized. RN candido present. Subjective ROS Limited/Unobtainable: No Objective Objective Last 24 Hour Vital Signs Date Time Temp Pulse Resp B/P (MAP) Pulse Ox O2 Delivery O2 Flow Rate FiO2 09/02/20 09:35 Room Air 09/02/20 09:29 166/90 09/02/20 08:57 166/90 09/02/20 08:00 68 09/02/20 08:00 98.7 71 18 166/90 (115) 93 09/02/20 05:57 177/92 09/02/20 04:45 98.5 63 20 177/92 (120) 94 09/02/20 03:36 77 09/02/20 01:22 189/82 09/02/20 00:00 65 09/02/20 00:00 98.8 63 20 189/82 (117) 95 09/01/20 21:00 Room Air 09/01/20 20:56 175/80 09/01/20 20:56 175/80 09/01/20 20:00 74 09/01/20 20:00 98.2 61 20 170/80 (110) 95 09/01/20 17:09 98.1 09/01/20 16:33 174/93 09/01/20 16:00 98.1 66 20 174/93 (120) 94 09/01/20 16:00 71 09/01/20 13:37 98.1 09/01/20 13:07 172/105 Intake and Output 09/01/20 09/02/20 19:00 07:00 Output Total 200 ml Balance -200 ml Output Emesis 200 ml Current Medications Medications (Trade) Dose Ordered Sig/Dexter Route PRN Reason Start Time Stop Time Status Last Admin Dose Admin Acetaminophen (Tylenol) 650 mg Q4H PRN ORAL Mild Pain (Pain Scale 1-3) 09/01/20 00:30 10/01/20 00:29 09/01/20 02:14 Aspirin (ASA) 81 mg DAILY ORAL 09/01/20 09:00 10/16/20 08:59 09/02/20 08:57 Clonidine HCl (Catapres Tab) 0.1 mg Q2H PRN ORAL SBP > 160mmHg 09/02/20 09:15 12/01/20 09:14 09/02/20 09:29 Docusate Sodium (Colace) 100 mg THREE TIMES A DAY ORAL 09/01/20 13:00 10/01/20 12:59 09/02/20 08:57 Heparin Sodium (Porcine) (Heparin 5000 units/ml) 5,000 units EVERY 12 HOURS SUBQ 09/01/20 09:00 10/16/20 08:59 09/02/20 09:02 Metoprolol Tartrate (Lopressor) 25 mg Q12HR ORAL 09/02/20 21:00 12/01/20 20:59 Minoxidil (Loniten) 2.5 mg Q12HR ORAL 09/01/20 12:00 11/30/20 11:59 09/02/20 08:57 Morphine Sulfate (Morphine Sulfate) 2 mg Q4H PRN IVP Moderate Pain (Pain Scale 4-6) 09/01/20 13:00 09/08/20 12:59 09/02/20 02:25 Morphine Sulfate (Morphine Sulfate) 4 mg Q4H PRN IVP Severe Pain (Pain Scale 7-10) 09/01/20 13:00 09/08/20 12:59 09/02/20 00:03 Nitroglycerin (Ntg) 0.4 mg Q5M PRN SL Prn Chest Pain 09/01/20 00:30 10/01/20 00:29 Ondansetron HCl (Zofran) 4 mg Q4H PRN IVP Nausea & Vomiting 09/01/20 00:30 10/01/20 00:29 09/02/20 02:24 Pantoprazole (Protonix) 40 mg EVERY 12 HOURS ORAL 09/01/20 21:00 10/01/20 20:59 09/02/20 08:57 Sevelamer Carbonate (Renvela) 2,400 mg THREE TIMES A DAY ORAL 09/01/20 13:00 11/30/20 12:59 09/02/20 08:57 Sucralfate (Carafate) 1 gm FOUR TIMES A DAY ORAL 09/01/20 13:00 11/30/20 12:59 09/02/20 08:57 Laboratory Tests 09/02/20 06:49: White Blood Count 8.9, Red Blood Count 2.54L, Hemoglobin 8.4L, Hematocrit 25.7L, Mean Corpuscular Volume 101H, Mean Corpuscular Hemoglobin 33.3H, Mean Corpuscular Hemoglobin Concent 32.9, Red Cell Distribution Width 13.4, Platelet Count 254, Mean Platelet Volume 6.6, Neutrophils (%) (Auto) 79.6H, Lymphocytes (%) (Auto) 10.4L, Monocytes (%) (Auto) 5.4, Eosinophils (%) (Auto) 3.3H, Basophils (%) (Auto) 1.4, Sodium Level 138, Potassium Level 3.9, Chloride Level 98, Carbon Dioxide Level 28, Anion Gap 13, Blood Urea Nitrogen 48H, Creatinine 9.2H, Estimat Glomerular Filtration Rate 4.8, Glucose Level 83, Hemoglobin A1c 5.1, Uric Acid 3.2, Calcium Level 8.2L, Phosphorus Level 6.9H, Magnesium Level 2.2, Iron Level 68, Total Iron Binding Capacity 180L, Percent Iron Saturation 38, Unsaturated Iron Binding 112, Ferritin 614H, Total Bilirubin 0.4, Gamma Glutamyl Transpeptidase 42, Aspartate Amino Transf (AST/SGOT) 28, Alanine Aminotransferase (ALT/SGPT) 37, Alkaline Phosphatase 93, Troponin I 0.056, Pro-B-Type Natriuretic Peptide > 48766C, Total Protein 6.4, Albumin 3.1L, Globulin 3.3, Albumin/Globulin Ratio 0.9L, Triglycerides Level 116, Cholesterol Level 138, LDL Cholesterol 76, HDL Cholesterol 45, Cholesterol/HDL Ratio 3.1L, Vitamin B12 Level 394, Folate 5.3L, Thyroid Stimulating Hormone (TSH) 5.789H Height (Feet): 5 Height (Inches): 5.00 Weight (Pounds): 110 General Appearance: no apparent distress Cardiovascular: normal rate Respiratory/Chest: decreased breath sounds Abdomen: distended Joe Garg MD Sep 02, 2020 12:12
--- NOTE | 2020-09-06 08:37 | Discharge Summary ---
Discharge Summary Discharge Summary _ DATE OF ADMISSION: 08/31/2020 DATE OF DISCHARGE: 09/02/2020 Patient left AGAINST MEDICAL ADVICE REASON FOR ADMISSION: 34 years old female with past medical history of end-stage renal disease, on hemodialysis, presented with complaint of chest pain. Patient was in [place] v isiting and was unable to arrange for dialysis for 1 day. Pain reported as sharp nonradiating 7 out of 10. No fever or chills. Upon evaluation blood pressure was significantly elevated 212/115 pulse oximetry was 95% on room air patient was afebrile laboratory work-up revealed mild leukocytosis WBC 11.5 hemoglobin 8.7 hematocrit 26.4 platelet count 299. Troponin 0 0.07 proBNP above 35,000. EKG revealed peaked T waves in lateral leads Potassium 6.0. BUN 92, creatinine 13.4. Chest x-ray revealed no evidence of acute cardiopulmonary disease. Hyperkalemia was treated in emergency department patient received Kayexalate calcium insulin and D50. Patient received ice. Analgesic and admitted to telemetry floor for further management. CONSULTANTS: career coach Dr. Avila pulmonary/critical care Dr. Nix canning machine operator Dr. Garg [facility] COURSE: Patient admitted to telemetry floor. Dialysis was arranged as per canning machine operator with close monitoring of volumes, electrolytes and renal parameters. Serial troponin were monitored. Two subsequent troponin negative. EKG revealed sinus rhythm no acute ischemic changes. Echocardiogram demonstrated preserved ejection fraction 55%. No evidence of wall motion abnormality. Right ventricular systolic pressure of 77 consistent with severe pulmonary hypertension. Moderate aortic regurgitation, moderate to severe mitral regurgitation and mild to moderate tricuspid regurgitation. Antihypertensive medication regimen was optimized . Patient was on multiple antihypertensive medication, including beta-chelsea, minoxidil and hydralazine. Clonidine was on board as needed for blood pressure spikes. Antiplatelet therapy with aspirin continued. DVT prophylaxis provided. Blood pressure improved. GI prophylaxis provided. Patient was encouraged compliance with medication. On 09/02 patient decided to leave AGAINST MEDICAL ADVICE. The risks and consequences of signing AGAINST MEDICAL ADVICE were discussed with patient in detail. Patient verbalized understanding, nevertheless signed AMA form and left. FINAL DIAGNOSIS Hypertensive emergency End-stage renal disease , on hemodialysis Hypertensive kidney disease Hyperkalemia Missed dialysis Poor compliance I have been assigned to dictate discharge summary for this account. I was not involved in the patient's management. Krystal Veras NP Sep 06, 2020 08:37
== END 2020-09-02 12:37 | disposition left against medical advice (07) | DRG 640 ==
LOC: EMR 21:25 → 2E 22:10 → EDBEDREQ 22:50 → 2E 09-02 01:31
PROC: 5A1D70Z Performance of Urinary Filtration, Intermittent, Less than 6 Hours Per Day (ICD-10-PCS; principal; 2020-09-01)
DX: E87.5 Hyperkalemia (principal); N18.6 End stage renal disease; I12.0 Hypertensive chronic kidney disease with stage 5 chronic kidney disease or end stage renal disease; I16.1 Hypertensive emergency; Z88.8 Allergy status to other drugs, medicaments and biological substances; Z99.2 Dependence on renal dialysis; R07.9 Chest pain, unspecified; Z91.15 Patient's noncompliance with renal dialysis; I35.1 Nonrheumatic aortic (valve) insufficiency; I34.0 Nonrheumatic mitral (valve) insufficiency; I36.1 Nonrheumatic tricuspid (valve) insufficiency; I27.20 Pulmonary hypertension, unspecified
CPT/HCPCS: 36415; 71045; 80053; 80061; 82607; 82728; 82746; 82962; 82977; 83036; 83540; 83550; 83735; 83880; 84100; 84443; 84484; 84550; 85007; 85025; 87081; 87340; 93005; 93306; 96374; 96375; 99291; J2405